=== PATIENT | male | born 1930 | race Caucasian/White ===

== ENCOUNTER 2016-06-12 11:54 | Emergency (ER) | payer OTHER ==
--- NOTE | 2016-06-12 13:31 | ER PHYSICIAN DOCUMENTATION ---
Physician Documentation [facility] Name:Ramírez Mcdaniels Age:85 yrs Sex:Male :1930 Arrival Date:06/12/2016 Time:11:54 Bed6 Private MD:aPco Heredia ED, Scott Disposition: 06/12/16 13:01 Discharged to Home/Self Care. Impression: Hip Contusion. - Condition is Good. - Discharge Instructions: HEMATOMA, HIP CONTUSION, Agents, Anticoagulant - COUMADIN COAGULOPATHY. - Medical Reconciliation form form. - Follow up: Paco Heredai MD; When: 4- 6 days; Reason: Recheck today's complaints, Continuance of care. - Problem is new. - Symptoms are unchanged. HPI: 06/12 12:57 This 85 yrs old Male presents to ER via Private Vehicle with complaints of sc Hip Injury - R. 12:57 The patient or guardian reports an injury, pain. that occurred at home, sustained from wy a fall, There is no obvious deformity, The patient is able to self ambulate. The patient is able to bear their full body weight. There is no radiation of the patient's discomfort. fell 4 days ago. The complaints affect the right hip. Onset: The symptom(s)/episode began/occurred 4 day(s) ago. Associated signs and symptoms: Loss of consciousness: the patient experienced no loss of consciousness. Historical: - Allergies: Amiodarone; Codeine; Morphine; Spironolactone; - Home Meds: 1. Warfarin Oral 2. Metformin Oral 3. Prednisone Oral 4. Synthroid Oral 5. Coreg Oral 6. Furosemide Oral 7. Enalapril Oral 8. hydrocotisone - PMHx: hypoxemia ; COPD; CHF; ATRIAL FIB; - PSHx: cataract removal; PACEMAKER; Cholecysectomy; hip replacement ; - Tetanus: < 10 years. - Ebola Screening: : Patient negative for fever greater than or equal to 101.5 degrees Fahrenheit, and additional compatible Ebola Virus Disease symptoms. Patient denies exposure to infectious person. Patient denies travel to an Ebola-affected area in the 21 days before illness onset. No symptoms or risks identified at this time. . - Immunization history: Flu Vaccine < 1 year. - Social history: Smoking status: Patient states former smoker of tobacco. ROS: 12:58 Constitutional: Negative for fever, chills, and weight loss. sc Eyes: Negative for injury, pain, redness, and discharge. Neck: Negative for injury, pain, and swelling. Cardiovascular: Negative for chest pain, palpitations, and edema. Respiratory: Negative for shortness of breath, cough, wheezing, and pleuritic chest pain. Back: Negative for injury and pain. Skin: Negative for injury, rash, and discoloration. 12:58 Neuro: Negative for headache, weakness, numbness, tingling, and seizure. sc 12:58 MS/extremity: Positive for injury or acute deformity, contusion, pain. Exam: Constitutional: This is a well developed, well nourished patient who is awake, alert, and in no acute distress. Head/Face: Normocephalic, atraumatic. Eyes: Pupils equal round and reactive to light, extra-ocular motions intact. Lids and lashes normal. Conjunctiva and sclera are non-icteric and not injected. Cornea within normal limits. Periorbital areas with no swelling, redness, or edema. Neck: Trachea midline, no thyromegaly or masses palpated, and no cervical lymphadenopathy. Supple, full range of motion without nuchal rigidity, or vertebral point tenderness. No meningismus. 12:59 Skin: Warm, dry with normal turgor. Normal color with no rashes, no lesions, and no sc evidence of cellulitis. 12:59 Musculoskeletal/extremity: Extremities: grossly normal except: noted in the right hip: contusion, ecchymosis, ROM: intact in all extremities, Circulation is intact in all extremities. Sensation intact. Vital Signs: 12:13 BP 128 / 46; Pulse 69; Resp 18; Pulse Ox 93% on R/A; Weight 101.15 kg; Height 70 in. cb (177.80 cm); Pain 10/10; 12:13 Body Mass Index 32.00 (101.15 kg, 177.80 cm) cb MDM: 11:57 Patient medically screened. sc 13:00 Differential diagnosis: hip fracture, intertrochanteric fracture, strain. Data sc reviewed: vital signs, nurses notes, lab test result(s), radiologic studies, and as a result, I will discharge patient. Counseling: I had a detailed discussion with the patient and/or guardian regarding: the historical points, exam findings, and any diagnostic results supporting the discharge/admit diagnosis, lab results, radiology results. Medication response: The patient's symptoms have improved. 06/12 12:36 Order name: INR W/ CAPI DRAW; Complete Time: 13:02 EDMO 06/12 13:02 Interpretation: Abnormal: INR W/ CAPI DRAW 4.3. sc Dispensed Medications: No medications were administered Signatures: Magalis Payan RN RN cb Chew, Scott, MD MD [facility], [facility] sd3
--- NOTE | 2016-06-12 13:31 | ER NURSING DOCUMENTATION ---
Nurse's Notes [facility] Name:Ramírez Mcdaniels Age:85 yrs Sex:Male :1930 Arrival Date:06/12/2016 Time:11:54 Bed6 Private MD:Paco Heredia Diagnosis:Hip Contusion Presentation: 06/12 12:01 Presenting complaint: Patient states: fell on Tuesday whiel moving box landed cb straight out, EMS did respond but didn't transport. Transition of care: Home. 12:01 Method Of Arrival: Private Vehicle cb 12:01 Acuity: KAYLAN 4 cb 12:01 Notified ED Physician of patient's arrival and CC Dr. Beltran notified. cb Triage Assessment: 12:44 General: Appears in no apparent distress, well groomed, Behavior is cooperative. Pain: cb Complains of pain in right hip Pain At worst was 10 out of 10 on a pain scale. Aggravated by getting into bed. EENT: No deficits noted. Neuro: Level of Consciousness is awake, alert, Oriented to person, place, time, event. Cardiovascular: No deficits noted. Respiratory: Airway is patent. GI: No deficits noted. : No deficits noted. Derm: No deficits noted. Musculoskeletal: Reports pain in R hip. 12:44 Injury Description:. cb Historical: - Allergies: Amiodarone; Codeine; Morphine; Spironolactone; - Home Meds: 1. Warfarin Oral 2. Metformin Oral 3. Prednisone Oral 4. Synthroid Oral 5. Coreg Oral 6. Furosemide Oral 7. Enalapril Oral 8. hydrocotisone - PMHx: hypoxemia ; COPD; CHF; ATRIAL FIB; - PSHx: cataract removal; PACEMAKER; Cholecysectomy; hip replacement ; - Tetanus: < 10 years. - Ebola Screening: : Patient negative for fever greater than or equal to 101.5 degrees Fahrenheit, and additional compatible Ebola Virus Disease symptoms. Patient denies exposure to infectious person. Patient denies travel to an Ebola-affected area in the 21 days before illness onset. No symptoms or risks identified at this time. . - Immunization history: Flu Vaccine < 1 year. - Social history: Smoking status: Patient states former smoker of tobacco. Screenin:13 Infectious Disease Risk None. Abuse screen: Denies threats or abuse. Denies injuries cb from another. Nutritional screening: No deficits noted. Vital Signs: 12:13 BP 128 / 46; Pulse 69; Resp 18; Pulse Ox 93% on R/A; Weight 101.15 kg; Height 70 in. cb (177.80 cm); Pain 10/10; 12:13 Body Mass Index 32.00 (101.15 kg, 177.80 cm) cb ED Course: 11:56 Patient arrived in ED. ama 11:56 Paco Heredia MD is Private Physician. ama 11:57 Joseph Beltran MD is Attending Physician. oh 12:01 Magalis Payan RN is Primary Nurse. cb 12:03 Triage completed. cb 12:12 Port Xray Completed. pm1 12:13 Valuables Remains with patient Patient has correct armband on for positive cb identification. Placed in gown. Bed in low position. Call light in reach. Adult w/ patient. Ice pack to injury. 13:00 Paco Heredia MD is Referral Physician. sc Administered Medications: No medications were administered Outcome: 13:01 Discharge ordered by . oh 13:15 Discharged to home via wheelchair, with family. 13:15 Condition: stable 13:15 Discharge Assessment: Patient awake, alert and oriented x 3. No cognitive and/or functional deficits noted. Patient verbalized understanding of disposition instructions. 13:15 Discharge instructions given to patient, family, Instructed on discharge instructions, follow up and referral plans. medication usage, Demonstrated understanding of instructions, medications. 13:30 Patient left the ED. sd3 Signatures: Magalis Payan RN RN Joseph Beltran MD MD oh Adela Joshi pm1 [employer] sd3 Asael Pandya, Reg Reg ama
--- NOTE | 2016-06-15 15:53 | RADIOLOGY REPORT ---
Views of the right hip are compared with prior films dated 12/23/2014. Again noted is the right hip replacement. Components are intact and in appropriate position. No fracture, subluxation or bony destructive change is seen. Scattered heterotopic ossification is increased. IMPRESSION: Stable right hip replacement. No acute displaced injury is identified. Occult pelvic fractures are common in this age group and may require further evaluation and/or followup for detection. [facility]
== END 2016-06-12 13:31 | disposition home or self-care (01) ==
LOC: ER 11:54
DX: S70.01XA Contusion of right hip, initial encounter (principal); W19.XXXA Unspecified fall, initial encounter; Y92.019 Unspecified place in single-family (private) house as the place of occurrence of the external cause; Y93.01 Activity, walking, marching and hiking; J44.9 Chronic obstructive pulmonary disease, unspecified; I48.91 Unspecified atrial fibrillation; Z79.01 Long term (current) use of anticoagulants; Z79.899 Other long term (current) drug therapy; Z95.0 Presence of cardiac pacemaker
CPT/HCPCS: 85610; 99282

== ENCOUNTER 2016-06-17 13:06 | Emergency (ER) | payer OTHER ==
[2016-06-17 14:31] LABS: BASOPHILS 0.2 % (0.0-2.0); EOSINOPHILS 0.4 % (0.0-6.0); HEMATOCRIT 32.1 % (42.0-54.0); HEMOGLOBIN 10.5 g/dL (14.0-18.0); LYMPHOCYTES 11.6 % (20.0-40.0); LYMPHOCYTES# 1.4 X 10^3uL (0.8-3.8); MEAN CELL VOLUME 87.9 fL (80.0-100.0); MEAN CORPUS. HGB CONCENTRATION 32.6 g/dL (32.0-36.0); MEAN CORPUSCULAR HEMOGLOBIN 28.6 pg (29.0-35.0); MEAN PLATELET VOLUME 7.5 fL (7.4-10.4); MONOCYTES 12.9 % (2.0-10.0); MONOCYTES# 1.5 X 10^3uL (0.2-1.0); NEUTROPHILS 74.9 % (54.0-75.0); NEUTROPHILS# 8.9 X 10^3uL (2.6-6.7); PLATELET COUNT 348 X 10^3uL (130-440); RED BLOOD COUNT 3.66 X 10^6uL (4.20-6.10); RED CELL DISTRIBUTION WIDTH 14.9 % (11.5-14.5); WHITE BLOOD COUNT 11.8 X 10^3uL (3.9-10.7)
[2016-06-17 14:40] LABS: BLOOD UREA NITROGEN 21 mg/dL (9-20); CALCIUM 9.2 mg/dL (8.4-10.2); CHLORIDE 102 mmol/L (98-107); CREATININE 0.7 mg/dL (0.7-1.3); GLUCOSE 114 mg/dL (70-100); POTASSIUM 4.3 mmol/L (3.5-5.1); SODIUM 135 mmol/L (137-145)
--- NOTE | 2016-06-17 16:25 | US REPORT ---
INDICATIONS:Rule out DVT COMPARISON:None TECHNIQUE: Duplex left lower stomach venous ultrasound, including color Doppler and pulse Doppler mendez luation with spectral waveform analysis and compression technique, was performed. FINDINGS:The visualized left common femoral, femoral and popliteal veins demonstrate normal flow, aug mentation and compressibility. There is an incidentally noted 6.2 x 1.3 cm Hernandez's cyst within the po pliteal fossa. IMPRESSION: 1. Negative examination for acute DVT 2. Incidental left Hernandez's cyst. Final Electronic Signature: This report was electronically signed by Modesto Smith MD on 06/17/2016 4:2 3 PM. dwells /
--- NOTE | 2016-06-17 17:12 | ER NURSING DOCUMENTATION ---
Nurse's Notes [facility] Name:Ramírez Mcdaniels Age:85 yrs Sex:Male :1930 Arrival Date:06/17/2016 Time:13:06 Bed1 Private MD:Paco Heredia Diagnosis:Bakers Cyst Presentation: 06/17 13:10 Acuity: KAYLAN 3 tg 13:54 Presenting complaint: Patient states: Increased swelling, redness, and pain in left LE. tg Transition of care: patient was not received from another setting of care. 13:54 Method Of Arrival: Private Vehicle tg Triage Assessment: 13:12 General: Appears in no apparent distress, Behavior is cooperative. Pain: Complains of tg pain in left foot Aggravated by increased activity, weight bearing. Neuro: Level of Consciousness is awake, alert. Cardiovascular: Capillary refill < 3 seconds. Cardiovascular: Edema Generalized edema in left leg, right leg appears normal (pt agrees). Respiratory: Respiratory effort is even, unlabored. Derm: Skin is pink, warm & dry. Derm: erythema in left toes and dorsum of foot. Covered wound on bottom of left toes. Historical: - Allergies: Amiodarone; Codeine; Morphine; Spironolactone; - Home Meds: 1. Warfarin Oral 2. Metformin Oral 3. Prednisone Oral 4. Synthroid Oral 5. Coreg Oral 6. Furosemide Oral 7. Enalapril Oral 8. hydrocotisone 9. Magnesium Oxide Oral 10. iron - PMHx: COPD; CHF; ATRIAL FIB; hypoxemia ; edema; spinal stenosis; cellulitis; PSVT; HIGH CHOLESTEROL; THYROID PROBLEM; IBS; - PSHx: HIP SURGERY; pacer; CHOLECYSECTOMY; back; - Tetanus: < 10 years. - Ebola Screening: : Patient negative for fever greater than or equal to 101.5 degrees Fahrenheit, and additional compatible Ebola Virus Disease symptoms. Patient denies exposure to infectious person. Patient denies travel to an Ebola-affected area in the 21 days before illness onset. No symptoms or risks identified at this time. . - Immunization history: Flu Vaccine < 1 year. - Social history: Smoking status: Patient states former smoker of tobacco. Screenin:54 Infectious Disease Risk Unable to Obtain. Abuse screen: Denies threats or abuse. Denies tg injuries from another. Nutritional screening: No deficits noted. Assessment: 15:38 Reassessment: No changes from previously documented assessment. tg Vital Signs: 13:24 BP 126 / 40; Pulse 63; Resp 16; Temp 97.8(O); Pulse Ox 92% on R/A; Weight 101.15 kg tg (R); Height 5 ft. 8 in. (172.72 cm) (R); Pain 3/10; 17:09 BP 142 / 47; Pulse 64; Resp 16; Pulse Ox 91% on R/A; tg 13:24 Body Mass Index 33.91 (101.15 kg, 172.72 cm) tg ED Course: 13:07 Patient arrived in ED. ama 13:08 Paco Heredia MD is Private Physician. ama 13:09 Joseph Beltran MD is Attending Physician. ms 13:10 Triage completed. tg 13:37 Patient moved to [facility]. feliciano 13:47 Varun Barth RN is Primary Nurse. tg 13:54 Valuables Remains with patient. Family accompanied patient. tg 14:07 Patient moved back from [facility]. mk 15:39 Assisted with urinal. tg 16:45 Paco Heredia MD is Referral Physician. ms Administered Medications: No medications were administered Outcome: 16:45 Discharge ordered by . ms 17:09 Discharged to home via wheelchair, with significant other. tg 17:09 Condition: stable 17:09 Discharge Assessment: Patient awake and alert. Pt able to stand with assistance and pivot to wheelchair from bed. 17:09 Instructed on discharge instructions, follow up and referral plans. 17:09 IV D/Chris 17:11 Patient left the ED. tg Signatures: Varun Barth, RN RN Joseph Beltran MD MD ms Arianne Stewart Andrew, Reg Reg ama
--- NOTE | 2016-06-17 17:12 | ER PHYSICIAN DOCUMENTATION ---
Physician Documentation [facility] Name:Ramírez Mcdaniels Age:85 yrs Sex:Male :1930 Arrival Date:06/17/2016 Time:13:06 Bed1 Private MD:Paco Heredia ED, Scott Disposition: 06/17/16 16:45 Discharged to Home/Self Care. Impression: Bakers Cyst. - Condition is Fair. - Discharge Instructions: HERNANDEZ'S CYST. - Medical Reconciliation form form. - Follow up: Paco Heredia MD; When: Tomorrow; Reason: Recheck today's complaints. - Problem is new. - Symptoms are unchanged. HPI: 06/17 16:41 This 85 yrs old Male presents to ER via Private Vehicle with complaints of sc Leg Swelling - R. 16:41 This 85 yrs old Male presents to ER via Private Vehicle with complaints of sc Leg Swelling - L. 16:41 The patient presents with swelling. The complaints affect the lateral aspect of left sc calf and medial aspect of left calf. Context: The problem was sustained at home, resulted from an unknown cause, the patient can fully bear weight, the patient is able to ambulate. Onset: The symptom(s)/episode began/occurred 2 day(s) ago. Associated signs and symptoms: The patient has no apparent associated signs or symptoms. Historical: - Allergies: Amiodarone; Codeine; Morphine; Spironolactone; - Home Meds: 1. Warfarin Oral 2. Metformin Oral 3. Prednisone Oral 4. Synthroid Oral 5. Coreg Oral 6. Furosemide Oral 7. Enalapril Oral 8. hydrocotisone 9. Magnesium Oxide Oral 10. iron - PMHx: COPD; CHF; ATRIAL FIB; hypoxemia ; edema; spinal stenosis; cellulitis; PSVT; HIGH CHOLESTEROL; THYROID PROBLEM; IBS; - PSHx: HIP SURGERY; pacer; CHOLECYSECTOMY; back; - Tetanus: < 10 years. - Ebola Screening: : Patient negative for fever greater than or equal to 101.5 degrees Fahrenheit, and additional compatible Ebola Virus Disease symptoms. Patient denies exposure to infectious person. Patient denies travel to an Ebola-affected area in the 21 days before illness onset. No symptoms or risks identified at this time. . - Immunization history: Flu Vaccine < 1 year. - Social history: Smoking status: Patient states former smoker of tobacco. ROS: 16:41 Constitutional: Negative for fever, chills, and weight loss. sc Eyes: Negative for injury, pain, redness, and discharge. Neck: Negative for injury, pain, and swelling. Cardiovascular: Negative for chest pain, palpitations, and edema. Respiratory: Negative for shortness of breath, cough, wheezing, and pleuritic chest pain. Abdomen/GI: Negative for abdominal pain, nausea, vomiting, diarrhea, and constipation. Back: Negative for injury and pain. Skin: Negative for injury, rash, and discoloration. 16:41 Neuro: Negative for headache, weakness, numbness, tingling, and seizure. sc 16:41 MS/extremity: Positive for erythema, pain, swelling. Exam: Constitutional: This is a well developed, well nourished patient who is awake, alert, and in no acute distress. Head/Face: Normocephalic, atraumatic. Eyes: Pupils equal round and reactive to light, extra-ocular motions intact. Lids and lashes normal. Conjunctiva and sclera are non-icteric and not injected. Cornea within normal limits. Periorbital areas with no swelling, redness, or edema. Cardiovascular: Regular rate and rhythm with a normal S1 and S2. No gallops, murmurs, or rubs. Normal PMI, no JVD. No pulse deficits. Respiratory: Lungs have equal breath sounds bilaterally, clear to auscultation and percussion. No rales, rhonchi or wheezes noted. No increased work of breathing, no retractions or nasal flaring. 16:42 Back: No spinal tenderness. No costovertebral tenderness. Full range of motion. sc 16:42 Musculoskeletal/extremity: Extremities: grossly normal except: erythema, swelling, tenderness, ROM: no acute changes, Circulation is intact in all extremities. Sensation intact. flushing over dorsum of foot, healing ulcers and toes with decreased vascularity being treated by podiatry Vital Signs: 13:24 BP 126 / 40; Pulse 63; Resp 16; Temp 97.8(O); Pulse Ox 92% on R/A; Weight 101.15 kg tg (R); Height 5 ft. 8 in. (172.72 cm) (R); Pain 3/10; 17:09 BP 142 / 47; Pulse 64; Resp 16; Pulse Ox 91% on R/A; tg 13:24 Body Mass Index 33.91 (101.15 kg, 172.72 cm) tg MDM: 13:09 Patient medically screened. nm 16:43 Differential diagnosis: dvt vs cellulitis vs gout vs other. Data reviewed: vital signs, nm nurses notes, lab test result(s), radiologic studies, ultrasound, and as a result, I will discharge patient. Counseling: I had a detailed discussion with the patient and/or guardian regarding: the historical points, exam findings, and any diagnostic results supporting the discharge/admit diagnosis, lab results, radiology results, the need for outpatient follow up, with the patient's primary care provider, Likely Hernandez's Cyst and venous stasis. Nl wbc and lack of warmth or acute tenderness makes cellulitis seem less likely today. Recheck tomorrow with pcp Dr. Heredia.. 06/17 14:42 Order name: CBC AUTO DIF, MDIF/RMOR IF IND; Complete Time: 15:40 EDMS 06/17 14:48 Interpretation: Abnormal: WHITE BLOOD COUNT 11.8; HEMATOCRIT 32.1. nm 06/17 14:42 Order name: PROTIME/INR; Complete Time: 15:40 EDMS 06/17 14:48 Interpretation: Abnormal: INR 3.0; anticoagulated. nm 06/17 15:07 Order name: BASIC METABOLIC PANEL; Complete Time: 15:40 EDMS 06/17 15:40 Interpretation: Normal. nm 06/17 16:28 Order name: US EXT LOWER LEFT [id number] EDMS Dispensed Medications: No medications were administered Signatures: Varun Barth, RUI RN tg Joseph Beltran MD MD nm
== END 2016-06-17 17:12 | disposition home or self-care (01) ==
LOC: ER 13:06
DX: M71.22 Synovial cyst of popliteal space [Baker], left knee (principal); M79.89 Other specified soft tissue disorders; M79.605 Pain in left leg; L97.529 Non-pressure chronic ulcer of other part of left foot with unspecified severity; R78.81 Bacteremia; B95.61 Methicillin susceptible Staphylococcus aureus infection as the cause of diseases classified elsewhere; I48.91 Unspecified atrial fibrillation; Z79.01 Long term (current) use of anticoagulants; J44.9 Chronic obstructive pulmonary disease, unspecified; Z79.899 Other long term (current) drug therapy
CPT/HCPCS: 80048; 85025; 85610; 87040; 87077; 87186; 99284

== ENCOUNTER 2016-06-23 16:54 | Inpatient (IN) | payer OTHER ==
[2016-06-23 17:40] LABS: BLOOD UREA NITROGEN 31 mg/dL (9-20); CALCIUM 9.3 mg/dL (8.4-10.2); CHLORIDE 99 mmol/L (98-107); CREATININE 0.9 mg/dL (0.7-1.3); GLUCOSE 155 mg/dL (70-100); MAGNESIUM 1.7 mg/dL (1.6-2.3); POTASSIUM 4.5 mmol/L (3.5-5.1); SODIUM 135 mmol/L (137-145)
[2016-06-23 17:51] LABS: TROPONIN I 0.022 ng/mL (0.00-0.034)
[2016-06-23 17:56] LABS: INR 1.9
[2016-06-23 18:01] LABS: BAND% (Manual) 2 % (0.0-1.0); EOSINOPHIL % (Manual) 1 % (0.0-6.0); LYMPHOCYTE % (Manual) 21 % (20.0-40.0); MONOCYTE % (Manual) 6 % (2.0-10.0); NEUTROPHIL % (Manual) 54 % (54.0-75.0)
[2016-06-23 18:02] LABS: PLATELET ESTIMATE ADEQUATE
[2016-06-23 18:06] LABS: OVALOCYTES PRESENT
[2016-06-23 18:07] LABS: HEMATOCRIT 36.5 % (42.0-54.0); HEMOGLOBIN 11.6 g/dL (14.0-18.0); MEAN CELL VOLUME 88.2 fL (80.0-100.0); MEAN CORPUS. HGB CONCENTRATION 31.9 g/dL (32.0-36.0); MEAN CORPUSCULAR HEMOGLOBIN 28.1 pg (29.0-35.0); MEAN PLATELET VOLUME 8.5 fL (7.4-10.4); PLATELET COUNT 388 X 10^3uL (130-440); RED BLOOD COUNT 4.14 X 10^6uL (4.20-6.10); RED CELL DISTRIBUTION WIDTH 15.3 % (11.5-14.5); WHITE BLOOD COUNT 19.3 X 10^3uL (3.9-10.7)
[2016-06-23 18:08] LABS: MYELOCYTE % (Manual) 1 % (0); PROMYELOCYTE % (Manual) 2 % (0)
[2016-06-23] MEDS ORDERED: FUROSEMIDE 20 MG/2 ML VIAL ONE ×2 (18:34→18:50)
[2016-06-23] MEDS ORDERED: NORMAL SALINE ADDVANTAGE 100 ML IV ONE (18:34)
[2016-06-23] MEDS ORDERED: CEFTRIAXONE SODIUM 1,000 MG/10 ML VIAL ONE (18:34)
[2016-06-23] MEDS ORDERED: HOME MEDICATION LIST NEEDED 1 EA EACH MISC ONE (19:20)
--- NOTE | 2016-06-23 20:48 | ER PHYSICIAN DOCUMENTATION ---
Physician Documentation [facility] Name:Ramírez Mcdaniels Age:85 yrs Sex:Male :1930 Arrival Date:06/23/2016 Time:16:54 Bed1 Private MD:Paco Heredia ED, John Disposition: 06/23/16 18:25 Admit ordered for eMrlin Guerra. Preliminary diagnosis are White Blood Cell Count- Elevated, Weakness, Difficulty Walking. - Bed requested for Medical/Surgical. - Condition is Fair. - Problem is new. - Symptoms have improved. 23 HR OBS Yes HPI: 06/23 18:20 This 85 yrs old Male presents to ER via EMS with complaints of Weakness. marjorie 18:20 The patient presents to the emergency department with weakness of the entire body, jm generalized weakness. Onset: The symptom(s)/episode began/occurred today. Context: occurred while the patient was going up stairs. . Associated signs and symptoms: The patient has no apparent associated signs or symptoms. Severity of symptoms: in the emergency department the symptoms are unchanged. Current symptoms: Currently, the patient is not experiencing any symptoms. The patient has not experienced similar symptoms in the past. The patient has not recently seen a physician. Pt was walking up the stairs and couldn't quite make it b/c of weakness, so he called 911. . Historical: - Allergies: Amiodarone; Codeine; Morphine; Spironolactone; - Home Meds: 1. Warfarin Oral 2. Metformin Oral 3. Prednisone Oral 4. Synthroid Oral 5. Coreg Oral 6. Enalapril Oral 7. hydrocotisone 8. Magnesium Oxide Oral 9. Lasix Oral - PMHx: COPD; CHF; ATRIAL FIB; hypoxemia ; edema; spinal stenosis; CELLULITIS; PSVT; HIGH CHOLESTEROL; THYROID PROBLEM; IBS; Pacemaker; Bakers Cyst (June 17, 2016); - PSHx: HIP SURGERY; pacer; CHOLECYSECTOMY; - Tetanus: unknown. - Ebola Screening: : No symptoms or risks identified at this time. . - Immunization history: Flu Vaccine < 1 year. - Social history: Smoking status: unknown if patient ever smoked tobacco. ROS: 18:22 Constitutional: Negative for fatigue, fever. marjorie 18:22 ENT: Negative for sinus congestion, sinus pain, sore throat. 18:22 Neck: Negative for tenderness. 18:22 Cardiovascular: Negative for chest pain. 18:22 Respiratory: Negative for cough, shortness of breath. 18:22 Abdomen/GI: Negative for abdominal pain, nausea, vomiting. 18:22 MS/extremity: Positive for swelling. 18:22 Skin: Positive for swelling. 18:22 Neuro: Positive for weakness, Negative for dizziness, numbness. 18:22 All other systems are negative. Exam: 18:22 Constitutional: The patient appears alert, awake, comfortable. jm 18:22 Eyes: Periorbital structures: appear normal, Pupils: equal, round, and reactive to light and accomodation. 18:22 Neck: C-spine: appears grossly normal, ROM/movement: is normal. 18:22 Cardiovascular: Rate: normal, Rhythm: regular. 18:22 Respiratory: the patient does not display signs of respiratory distress, Respirations: normal. 18:22 Abdomen/GI: Bowel sounds: normal, Palpation: abdomen is soft and non-tender. 18:22 Musculoskeletal/extremity: DVT Exam: No signs of deep vein thrombosis. Calves: are non-tender, but +1 edema noted. 18:22 Neuro: Mentation: is normal, Memory: is normal. 18:22 Neuro: Motor: is normal. 18:22 Psych: Behavior/mood is pleasant, cooperative, Affect is calm. Vital Signs: 17:12 BP 122 / 51; Pulse 60; Resp 18; Temp 97.4; Pulse Ox 92% on R/A; Weight 101.15 kg; ma Height 5 ft. 11 in. (180.34 cm); Pain 0/10; 17:55 BP 124 / 50; Pulse 60; Resp 14; Pulse Ox 92% on R/A; ma 18:58 BP 131 / 46; Pulse 62; Resp 23; Pulse Ox 94% on R/A; Pain 0/10; ma 19:01 BP 131 / 46; Pulse 60; Resp 16; Pulse Ox 90% ; ma 19:30 BP 122 / 50; Pulse 59; Resp 17; Pulse Ox 91% on R/A; ma 19:30 BP 121 / 51; Pulse 60; Resp 21; Pulse Ox 95% on R/A; ma 20:00 BP 118 / 52; Pulse 62; Resp 13; Pulse Ox 95% ; ma 20:30 BP 127 / 52; Pulse 60; Resp 15; Pulse Ox 94% ; ma 17:12 Body Mass Index 31.10 (101.15 kg, 180.34 cm) nv MDM: 16:59 Patient medically screened. 18:23 Neurological re-evaluation: normal neurological exam including cranial nerves, jm orientation, mentation, motor and sensory exam, cerebellar testing, GCS normal, and normal gait. Data reviewed: vital signs, nurses notes, old medical records, lab test result(s), EKG, radiologic studies, and as a result, I will admit patient. Test interpretation: by ED physician or midlevel provider: plain radiologic studies, ECG. Counseling: I had a detailed discussion with the patient and/or guardian regarding: the historical points, exam findings, and any diagnostic results supporting the discharge/admit diagnosis, lab results, radiology results, the need for further work-up and treatment in the hospital. ECG:. Physician consultation: Merlin Guerra MD regarding admission, and will see patient in ED, immediately. ED course: Pt here for weakness. I do not have a great idea of why except for possible CHF exacerbation vs infection,. WBC count is elevated which may be due to infection vs myeloproliferative disorder. Dr. Guerra will see pt and wants bld clx and abx. . 06/23 17:46 Order name: BASIC METABOLIC PANEL; Complete Time: 18:16 [facility] 06/23 17:46 Order name: MAGNESIUM; Complete Time: 18:16 [facility] 06/23 17:53 Order name: TROPONIN I; Complete Time: 18:16 [facility] 06/23 17:58 Order name: PROTIME/INR; Complete Time: 18:16 [facility] 06/23 18:06 Order name: BNP,NT-PRO; Complete Time: 18:16 [facility] 06/23 18:09 Order name: CBC W/ MANUAL DIFFERENTIAL; Complete Time: 18:16 [facility] 06/23 17:13 Order name: 12-lead EKG; Complete Time: 18:31 06/23 17:13 Order name: Iv Saline Lock; Complete Time: 18:31 06/23 17:13 Order name: Place Patient On Monitor; Complete Time: 18:31 06/23 17:13 Order name: Pulse Ox Continuous; Complete Time: 18:31 EC:23 Rhythm is regular. QRS Crawford is Normal. T waves are Normal. No ST changes noted. Dispensed Medications: 18:50 Drug: Lasix 20 mg; Route: IVP; Rate: per protocol; Infused Over: 3 mins; Site: left nv hand; 19:25 Follow up: Response: No adverse reaction nv 19:15 Drug: Clindamycin 600 mg; Route: IVPB; Rate: per protocol; Site: left hand; Delivery: ma Pump; 19:45 Follow up: IV Status: Completed infusion; IV Intake: 50ml nv 20:41 Follow up: Response: No adverse reaction nv 19:24 CANCELLED (Physician Discretion): Rocephin 1 grams IVPB once ma Signatures: Magalis Toribio, RUI RN David Lyles MD MD jm
--- NOTE | 2016-06-23 20:48 | ER NURSING DOCUMENTATION ---
Nurse's Notes [facility] Name:Ramírez Mcdaniels Age:85 yrs Sex:Male :1930 Arrival Date:06/23/2016 Time:16:54 Bed1 Private MD:Paco Heredia Diagnosis:White Blood Cell Count- Elevated;Weakness;Difficulty Walking Presentation: 06/23 16:57 Acuity: KAYLAN 2 ma 16:58 Presenting complaint: Son states: EMS called for patient assist to get up stairs Pt ma states he had onset of weakness when trying to climb stairs Pt laid down on stairs and waited for help Denies fall or injury Per EMS they are frequently called to his home for lift assist. Transition of care: Home. 16:58 Method Of Arrival: EMS: 410 ma Triage Assessment: 17:16 General: Appears in no apparent distress, well groomed, Behavior is cooperative. Neuro: ma Reports weakness. Historical: - Allergies: Amiodarone; Codeine; Morphine; Spironolactone; - Home Meds: 1. Warfarin Oral 2. Metformin Oral 3. Prednisone Oral 4. Synthroid Oral 5. Coreg Oral 6. Enalapril Oral 7. hydrocotisone 8. Magnesium Oxide Oral 9. Lasix Oral - PMHx: COPD; CHF; ATRIAL FIB; hypoxemia ; edema; spinal stenosis; CELLULITIS; PSVT; HIGH CHOLESTEROL; THYROID PROBLEM; IBS; Pacemaker; Bakers Cyst (June 17, 2016); - PSHx: HIP SURGERY; pacer; CHOLECYSECTOMY; - Tetanus: unknown. - Ebola Screening: : No symptoms or risks identified at this time. . - Immunization history: Flu Vaccine < 1 year. - Social history: Smoking status: unknown if patient ever smoked tobacco. Screenin:14 Infectious Disease Risk None. Abuse screen: Denies threats or abuse. Nutritional ma screening: No deficits noted. Assessment: 17:16 Pain: Denies pain. Neuro: Level of Consciousness is awake, alert, Oriented to person, ma place, time, event. Cardiovascular: Rhythm is ventricular pacer. Vital Signs: 17:12 BP 122 / 51; Pulse 60; Resp 18; Temp 97.4; Pulse Ox 92% on R/A; Weight 101.15 kg; ma Height 5 ft. 11 in. (180.34 cm); Pain 0/10; 17:55 BP 124 / 50; Pulse 60; Resp 14; Pulse Ox 92% on R/A; ma 18:58 BP 131 / 46; Pulse 62; Resp 23; Pulse Ox 94% on R/A; Pain 0/10; ma 19:01 BP 131 / 46; Pulse 60; Resp 16; Pulse Ox 90% ; ma 19:30 BP 122 / 50; Pulse 59; Resp 17; Pulse Ox 91% on R/A; ma 19:30 BP 121 / 51; Pulse 60; Resp 21; Pulse Ox 95% on R/A; ma 20:00 BP 118 / 52; Pulse 62; Resp 13; Pulse Ox 95% ; ma 20:30 BP 127 / 52; Pulse 60; Resp 15; Pulse Ox 94% ; ma 17:12 Body Mass Index 31.10 (101.15 kg, 180.34 cm) ca ED Course: 16:56 Patient arrived in ED. ds 16:56 Paco Heredia MD is Private Physician. ds 16:56 Magalis Toribio, RUI is Primary Nurse. ca 16:57 Triage completed. ca 16:59 office correspondent on. Pulse ox on. NIBP on. ma 17:09 EKG done. (by ED staff). Reviewed by David Escobar MD. ca 17:12 David Escobar MD is Attending Physician. 17:14 Valuables Given to family. Patient has correct armband on for positive identification. ma Placed in gown. Bed in low position. Call light in reach. Side rails up X 1. Adult w/ patient. 18:25 Merlin Guerra MD is Admitting Physician. marjorie Administered Medications: 18:50 Drug: Lasix 20 mg; Route: IVP; Rate: per protocol; Infused Over: 3 mins; Site: left ma hand; 19:25 Follow up: Response: No adverse reaction ma 19:15 Drug: Clindamycin 600 mg; Route: IVPB; Rate: per protocol; Site: left hand; Delivery: ma Pump; 19:45 Follow up: IV Status: Completed infusion; IV Intake: 50ml ma 20:41 Follow up: Response: No adverse reaction ma 19:24 CANCELLED (Physician Discretion): Rocephin 1 grams IVPB once ma Intake: 19:45 IV: 50ml; Total: 50ml. ma Output: 20:30 Urine: 550ml (Voided); Total: 550ml. ma Outcome: 18:25 Decision to Admit by Provider. marjorie 20:43 Admitted to Med/surg danica 20:43 Condition: stable 20:43 Report given to Augustus FABIAN 20:43 Instructed on need to admit 20:47 Patient left the ED. danica Signatures: Magalis Toribio RN RN ma Srot, Cassidy, Reg Reg David Chaidez MD MD jm
[2016-06-23] MEDS ORDERED: MAGNESIUM OXIDE 250 MG PO SCH (21:00)
[2016-06-23] MEDS ORDERED: ACETAMINOPHEN 500 MG TABLET PO PRN (21:52)
[2016-06-23] MEDS: SODIUM CHLORIDE NASAL SPRAY 44 SPRAY/44 ML BTL NASAL SCH (22:37)
[2016-06-23] MEDS: CARVEDILOL 3.125 MG TABLET PO SCH (22:37)
[2016-06-23] MEDS ORDERED: VANCOMYCIN HCL IV SCH (23:00)
[2016-06-23] MEDS ORDERED: NORMAL SALINE IV SCH (23:00)
[2016-06-24] MEDS ORDERED: VANCOMYCIN HCL 1,000 MG/20 ML VIAL ONE (01:10)
[2016-06-24] MEDS ORDERED: VANCOMYCIN 500 MG/10 ML ONE (01:11)
[2016-06-24] MEDS ORDERED: NORMAL SALINE 250 ML IV ONE (01:12)
[2016-06-24 05:46] LABS: EOSINOPHILS 1.4 % (0.0-6.0); EOSINOPHILS# 0.2 X 10^3uL (0.0-0.4); HEMATOCRIT 32.5 % (42.0-54.0); HEMOGLOBIN 10.5 g/dL (14.0-18.0); LYMPHOCYTES 12.3 % (20.0-40.0); LYMPHOCYTES# 1.4 X 10^3uL (0.8-3.8); MEAN CELL VOLUME 87.8 fL (80.0-100.0); MEAN CORPUS. HGB CONCENTRATION 32.3 g/dL (32.0-36.0); MEAN CORPUSCULAR HEMOGLOBIN 28.4 pg (29.0-35.0); MEAN PLATELET VOLUME 7.4 fL (7.4-10.4); MONOCYTES 5.5 % (2.0-10.0); MONOCYTES# 0.6 X 10^3uL (0.2-1.0); NEUTROPHILS 80.8 % (54.0-75.0); NEUTROPHILS# 9.6 X 10^3uL (2.6-6.7); PLATELET COUNT 291 X 10^3uL (130-440); RED CELL DISTRIBUTION WIDTH 15.4 % (11.5-14.5); WHITE BLOOD COUNT 11.8 X 10^3uL (3.9-10.7)
[2016-06-24 05:53] LABS: BLOOD UREA NITROGEN 30 mg/dL (9-20); CALCIUM 8.7 mg/dL (8.4-10.2); CHLORIDE 100 mmol/L (98-107); CREATININE 0.8 mg/dL (0.7-1.3); GLUCOSE 81 mg/dL (70-100); POTASSIUM 3.5 mmol/L (3.5-5.1); SODIUM 136 mmol/L (137-145)
[2016-06-24] MEDS: LEVOTHYROXINE 88 MCG TABLET PO SCH (06:13)
[2016-06-24] MEDS: PANTOPRAZOLE 40 MG TABLET PO SCH (06:13)
--- NOTE | 2016-06-24 06:26 | HISTORY & PHYSICAL ---
DATE OF ADMISSION: 06/23/16 ATTENDING PHYSICIAN: Merlin Guerra MD PRIMARY CARE PHYSICIAN: Paco Heredia MD HISTORY OF PRESENT ILLNESS: This 85-year-old gentleman came by ambulance to the Emergency Department this evening after being unable to walk up the stairs at home because of generalized weakness. He was able to walk up the stairs this morning. His only recent acute illness has been a suspected left foot cellulitis , evaluated initially on 06/17/16 at [facility] ED. He was started on Cephalexin, which he has continued. He had good improvement in the left foot erythema and partial improvement in his swelling, so has continued on the Cephalexin. However, blood cultures from 06/17/16 grew Staphylcoccus aureus in both bottles but with different sensitivities. See lab section below. This week he also had a venous Duplex scan which evidently showed a Bakers cyst but no clot. He is fully anticoagulated for atrial fibrillation chronically and his INR today was 1.9 and was 2.2 two days ago. He had prednisone from 06/17 - 06/21. He has not had any fever, chills, cough, sore throat, nasal congestion or urinary symptoms. PAST MEDICAL HISTORY 1. Methicillin-resistant staphylococcus aureus in one of his feet 3-4 years ago that required extensive IV antibiotics. He is uncertain which foot or antibiotic. 2. 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 3. Chronic bilateral foot callouses. One of these on the left foot was uncovered in May by Dr. Pennington, with some drainage underneath according to the patient and his . 4. Atrial fibrillation. 5. Cardiomyopathy. 6. Pacemaker. 7. Chronic systolic congestive heart failure. 8. Hypertension. 9. Emphysema. 10. Gastroesophageal reflux disease. 11. Hypothyroidism. 12. Osteopenia. 13. Sick sinus syndrome. 14. 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 15. 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 PAST SURGICAL HISTORY 1. Dual chamber pacemaker 2009. 2. Cholecystectomy 2009. 3. Cataracts 2012. 4. Carpal tunnel release 2015. 5. Hip replacement, right side, 1992. 6. Lumbar laminectomies x2. 7. Lumbar fusion. 8. Right hip arthroplasty x4. MEDICATIONS Cephalexin 500 mg t.i.d. Vitamin D 2000 units daily. Vitamin B complex one daily. Fiber one daily. Artificial tears 0.5% 1 drop in each eye PRN. Omeprazole 20 mg daily. Ayre saline spray, 1 spray in each nostril b.i.d. Warfarin with current dosing of 5 mg every other day according to the patient. Metformin 500 mg extended release daily. Synthroid 88 mcg daily. Coreg 6.25 mg b.i.d. Furosemide 40 mg twice daily. Enalapril 20 mg daily. Tylenol 500 mg t.i.d. PRN. Magnesium oxide 500 mg daily. Iron 325 mg daily. ALLERGIES: Morphine causes itching and hallucinations. Spironolactone caused renal insufficiency and hyperkalemia. Amiodarone caused peripheral neuropathy. Codeine causes pruritus and hallucinations. PHYSICAL EXAMINATION VITAL SIGNS: In the Emergency Department included a temperature 97.4, pulse 62, blood pressure 131/46 and respiratory rate 23 with an O2 saturation of 94% on room air. GENERAL: He was alert and oriented x3 and mildly hard of hearing. No acute distress. HEENT: Oral mucosa was moist. Pharynx without erythema. Sinuses nontender. NECK: Without adenopathy. LUNGS: Had some bibasilar rales, but were otherwise clear. HEART: Irregularly regular rhythm and no murmur. ABDOMEN: Soft, nontender. EXTREMITIES: Left foot and ankle had 1+ edema. The dorsal foot with some moderate erythema and warmth and no tenderness. He had 2 callouses on the sole of the foot at the metatarsal heads. The most lateral one appeared to be the deepest but was without any drainage. NEURO: Nonfocal. LABORATORY DATA: Patient's blood cultures from 06/17/16 both grew out staph aureus. One of them showed resistance to Clindamycin as where the other one did not. Both of them were sensitive to Ciprofloxacin, Levofloxacin, Bactrim and Vancomycin and Gentamycin. Both were resistant to Erythromycin. His white count was 19,300 with 54% neutrophils, 2% bands, 12% atypical lymphs and 21% lymphs. The hemoglobin was 11.6, hematocrit 36.5 and platelets were 388,000. Sodium was 135, potassium 4.5, chloride 99, CO2 23, glucose 155 (random), BUN 31, creatinine 0.9, magnesium 1.7. Troponin 0.022 with normal being less than 0.034. His INR was 1.9. Urinalysis was dip negative. Two new blood cultures are pending. IMAGING: X-ray of the left foot shows no obvious osteomyelitis. IMPRESSION 1. Acute weakness likely related to left foot cellulitis with staphylococcus aureus. Blood cultures were positive on 06/17/16. 2. Congestive heart failure with NT-pro-BNP up to 5,000 compared to 2600 last year in September. 3. Atrial fibrillation with appropriate anticoagulation. 4. Chronic obstructive pulmonary disease with chronic hypoxia and some residual scarring from previous Amiodarone. 5. History of hyperglycemia without diabetes. 6. Hypothyroidism. 7. Gastroesophageal reflux disease. PLAN: Patient initially got Clindamycin in the Emergency Department prior to us becoming aware of her previous blood cultures. I plan to give him Vancomycin IV as dosed by Pharmacy. I will continue him on his other usual medications. We will elevate his foot. Dr. Faith will resume care in the morning, covering for Dr. Heredia. MOMO
--- NOTE | 2016-06-24 07:05 | RADIOLOGY REPORT ---
Three views of the left foot demonstrate no displaced fracture, subluxation or bony destructive change. The visualized joints appear unremarkable. Posterior calcaneal spur is seen. Soft tissue vascular calcifications are noted. IMPRESSION: Chronic changes as described. No evidence of osteomyelitis is identified. If clinically indicated, further evaluation with MRI scanning may be of benefit considering its increased accuracy. MTDD
--- NOTE | 2016-06-24 08:13 | PROGRESS NOTE: IM APSO ---
Assessment and Plan - Date of Encounter Date of Encounter: 06/24/16 (1) Bacteremia due to Gram-positive bacteria Status: Acute Assessment and plan: Patient is receiving Vancomycin. The staph has two different types of sensitivities from each bottle, which is confusing. He has responded remarkably well to the IV antibiotic. I suspect part of his elevated WBC is the result of steroid use recently for presumptive gout. Repeat blood cultures were obtained, but the patient was taking Keflex at home. Addendum: I was called by the lab later in the day with report that only ONE bottle cultured positive, out of two. The staph is insensitive to Clindamycin. Current Visit: Yes (2) CHF (congestive heart failure) Status: Acute Assessment and plan: Patient diuresed well after IV lasix. BNP not ordered for this morning, so will add that. Patient had a normal troponin in the ER, and is not having chest pain. However, since he has bacteremia, I have some concern for the potential of valvular infection. He has mild MR per last echo. He also has a pacemaker in place. The pocket is not inflamed or tender. He also has had the sudden onset of weakness, which brought him to the ER, as he was stuck on his stairs. Will have PT evaluation today. Addendum: BNP was higher at over 7,000. I returned to examine the patient again, and his lungs were clear, his mild peripheral edema is unchanged, he denies any increase in shortness of breath, so I did not add more diuretic. Current Visit: Yes (3) Cellulitis and abscess of foot Status: Acute Assessment and plan: Patient reports decreased pain and swelling today. I suspect that there is gouty involvement, as well as the infection. He has calluses on the sole of the left foot, one of which was unroofed by Podiatry about two weeks ago, which may be the source of the bacteremia. Patient has a neuropathy due to amiodarone. His uric acid level was decreased over previous, and a CRP is in the 26 range. Continue Vancomycin for now. Current Visit: Yes - Time Spent With Patient Total time spent with greater than 50% in coordination of care (as documented) at patient's floor/unit and/or counseling patient: 16-24 minutes IM: PN Subjective Interval history: Doing a lot better this morning, with less weakness and pain. He has not been out of bed, however, and is using the urinal. His white blood cell count is improved. General: no fatigue, no fever, no chills HEENT: no visual changes, no headache Cardiovascular: no chest pain, no chest pressure, no dizziness Respiratory: no SOB Gastrointestinal: no abdominal pain, no nausea Musculoskeletal: pain, swelling Neurological: no headache IM: PN Objective Exam - I&O/Vital Signs I&O: Intake & Output 06/23/16 06/24/16 06/24/16 21:59 05:59 13:59 Intake Total 740 Output Total 550 Balance 190 Weight 100.5 kg Intake: IV 500 Left Hand 500 Oral 240 Output: Urine 550 Other: Voiding Method Incontinent # Voids 1 # Bowel Movements 0 Vital Signs: Last Vital Signs Temp 36.4 C 06/24/16 06:32 Pulse 61 06/24/16 06:32 Resp 18 06/24/16 06:32 BP 118/55 06/24/16 06:32 Pulse Ox 96 06/24/16 06:32 Oxygen Flow Rate 1 Oxygen Delivery Method Nasal Cannula - Constitutional General appearance: Present: obese - Head Head exam: Present: normal inspection - Eye Eye exam: Present: EOMI. Absent: conjunctival injection Pupils: Present: PERRL - ENT ENT exam: Present: mucous membranes moist - Neck Neck exam: Present: full ROM - Respiratory Respiratory exam: Present: rales (bibasilar) - Cardiovascular Cardiovascular exam: Present: irregular rhythm, systolic murmur (2/6) - GI/Abdominal GI/Abdominal exam: Present: normal bowel sounds, soft. Absent: tenderness - Extremities Exam Extremities exam: Present: joint swelling (left ankle), edema, tenderness - Neurological Exam Neurological exam: Present: CN II-XII intact, oriented X3 - Skin Skin exam: Present: warm (around left ankle) - Lab Labs: Laboratory Last Values WBC 11.8 X 10^3uL (3.9-10.7) H 06/24/16 05:00 RBC 3.70 X 10^6uL (4.20-6.10) L 06/24/16 05:00 Hgb 10.5 g/dL (14.0-18.0) L 06/24/16 05:00 Hct 32.5 % (42.0-54.0) L 06/24/16 05:00 MCV 87.8 fL (80.0-100.0) 06/24/16 05:00 MCH 28.4 pg (29.0-35.0) L 06/24/16 05:00 MCHC 32.3 g/dL (32.0-36.0) 06/24/16 05:00 RDW 15.4 % (11.5-14.5) H 06/24/16 05:00 Plt Count 291 X 10^3uL (130-440) 06/24/16 05:00 MPV 7.4 fL (7.4-10.4) 06/24/16 05:00 Total Counted 100 06/23/16 16:33 Neutrophils % 80.8 % (54.0-75.0) H 06/24/16 05:00 Neutrophils % (Manual) 54 % (54.0-75.0) 06/23/16 16:33 Band Neuts % (Manual) 2 % (0.0-1.0) H 06/23/16 16:33 Lymphocytes % 12.3 % (20.0-40.0) L 06/24/16 05:00 Lymphocytes % (Manual) 21 % (20.0-40.0) 06/23/16 16:33 Atypical Lymphs % (Man) 12 % 06/23/16 16:33 Monocytes % (Manual) 6 % (2.0-10.0) 06/23/16 16:33 Eosinophils % 1.4 % (0.0-6.0) 06/24/16 05:00 Eosinophils % (Manual) 1 % (0.0-6.0) 06/23/16 16:33 Basophils % 0.0 % (0.0-2.0) 06/24/16 05:00 Metamyelocytes % (Man) 1 % (0) H 06/23/16 16:33 Myelocytes % (Man) 1 % (0) H 06/23/16 16:33 Promyelocytes % (Man) 2 % (0) H 06/23/16 16:33 Neutrophils # 9.6 X 10^3uL (2.6-6.7) H 06/24/16 05:00 Lymphocytes # 1.4 X 10^3uL (0.8-3.8) 06/24/16 05:00 Monocytes 5.5 % (2.0-10.0) 06/24/16 05:00 Monocytes # 0.6 X 10^3uL (0.2-1.0) 06/24/16 05:00 Eosinophils # 0.2 X 10^3uL (0.0-0.4) 06/24/16 05:00 Basophils # 0.0 X 10^3uL (0.0-0.1) 06/24/16 05:00 Platelet Estimate Adequate 06/23/16 16:33 Polychromasia 10-19% of cells 06/23/16 16:33 Hypochromic-Microcytic 10-19% of cells 06/23/16 16:33 Microcytosis 10-19% of cells 06/23/16 16:33 Ovalocytes Present 06/23/16 16:33 PT 24.8 sec (13.0-16.6) H 06/23/16 16:33 INR 1.9 D 06/23/16 16:33 Sodium 136 mmol/L (137-145) L 06/24/16 05:00 Potassium 3.5 mmol/L (3.5-5.1) D 06/24/16 05:00 Chloride 100 mmol/L (98-107) 06/24/16 05:00 Carbon Dioxide 30 mmol/L (22-30) 06/24/16 05:00 BUN 30 mg/dL (9-20) H 06/24/16 05:00 Creatinine 0.8 mg/dL (0.7-1.3) 06/24/16 05:00 GFR Calculation Not Reportable 06/24/16 05:00 Glucose 81 mg/dL (70-100) 06/24/16 05:00 Calcium 8.7 mg/dL (8.4-10.2) 06/24/16 05:00 Magnesium 1.7 mg/dL (1.6-2.3) 06/23/16 16:33 Troponin I 0.022 ng/mL (0.00-0.034) 06/23/16 16:33 NT-Pro-B Natriuret Pep 4970 pg/mL (<450) H 06/23/16 16:33 Quality Questions - VTE Prophylaxis Assessment VTE Present on Admission?: No Patient at risk for venous thromboembolism?: Yes VTE Risk Level: High Risk VTE Medical Contraindication: N/A-VTE Prophylaxis ordered VTE Medical Contraindication: N/A- VTE prophylaxsis ord (2) CHF (congestive heart failure) Qualifiers: Congestive heart failure chronicity: acute on chronic
[2016-06-24 08:57] LABS: C-REACTIVE PROTEIN 25.7 mg/L (<10.0)
[2016-06-24] MEDS: CARVEDILOL 3.125 MG TABLET PO SCH ×2 (09:37→20:41)
[2016-06-24] MEDS: metFORMIN ER 500 MG TABLET PO SCH (09:38)
[2016-06-24] MEDS: FERROUS SULFATE 325 MG TABLET PO SCH (09:38)
[2016-06-24] MEDS: FUROSEMIDE 40 MG TABLET PO SCH ×2 (09:39→20:42)
[2016-06-24] MEDS: MAGNESIUM OXIDE 400 MG TABLET PO SCH (09:39)
[2016-06-24] MEDS: SODIUM CHLORIDE NASAL SPRAY 44 SPRAY/44 ML BTL NASAL SCH ×3 (09:39→20:45)
[2016-06-24 09:41] LABS: URIC ACID 7.8 mg/dL (3.5-8.5)
[2016-06-24] MEDS: ENALAPRIL MALEATE 5 MG TABLET PO SCH (09:41)
[2016-06-24] MEDS: CHOLECALCIFEROL 1,000 UNIT CAPSULE PO SCH (09:42)
[2016-06-24] MEDS: NORMAL SALINE IV SCH ×2 (11:32→22:49)
[2016-06-24] MEDS: VANCOMYCIN HCL IV SCH ×2 (11:32→22:49)
[2016-06-24] MEDS ORDERED: WARFARIN SODIUM 2 MG TABLET PO SCH (16:00)
[2016-06-24] MEDS ORDERED: POLYVINYL ALCOHOL 1.4% OPHTH 75 DROP/15 ML BTL OPHTHALMIC PRN (19:45)
[2016-06-25 03:04] VITALS: O2SAT 95
[2016-06-25] MEDS: LEVOTHYROXINE 88 MCG TABLET PO SCH (06:25)
[2016-06-25] MEDS: PANTOPRAZOLE 40 MG TABLET PO SCH (06:25)
[2016-06-25 06:39] VITALS: TEMP 97.8
[2016-06-25 07:05] LABS: BLOOD UREA NITROGEN 20 mg/dL (9-20); CALCIUM 8.6 mg/dL (8.4-10.2); CHLORIDE 98 mmol/L (98-107); CREATININE 0.7 mg/dL (0.7-1.3); GLUCOSE 86 mg/dL (70-100); POTASSIUM 3.8 mmol/L (3.5-5.1); SODIUM 136 mmol/L (137-145)
[2016-06-25 07:10] LABS: BASOPHILS 0.1 % (0.0-2.0); EOSINOPHILS# 0.2 X 10^3uL (0.0-0.4); LYMPHOCYTES 12.6 % (20.0-40.0); LYMPHOCYTES# 1.4 X 10^3uL (0.8-3.8); MEAN CELL VOLUME 87.7 fL (80.0-100.0); MEAN CORPUS. HGB CONCENTRATION 33.3 g/dL (32.0-36.0); MEAN CORPUSCULAR HEMOGLOBIN 29.2 pg (29.0-35.0); MEAN PLATELET VOLUME 7.7 fL (7.4-10.4); MONOCYTES 10.3 % (2.0-10.0); MONOCYTES# 1.1 X 10^3uL (0.2-1.0); NEUTROPHILS# 8.4 X 10^3uL (2.6-6.7); PLATELET COUNT 285 X 10^3uL (130-440); RED BLOOD COUNT 3.85 X 10^6uL (4.20-6.10); RED CELL DISTRIBUTION WIDTH 15.5 % (11.5-14.5); WHITE BLOOD COUNT 11.1 X 10^3uL (3.9-10.7)
[2016-06-25 07:13] LABS: HEMATOCRIT 33.8 % (42.0-54.0); HEMOGLOBIN 11.2 g/dL (14.0-18.0)
--- NOTE | 2016-06-25 09:00 | DC SUMMARY: IM Note ---
Discharge Summary: IM/Peds Provider: Date of Admission: 06/23/16 Admitting Provider: KEERTHI ALEGRIA MD Attending Provider: RIKI YIN MD Discharging Provider: RIKI YIN MD Primary Care Provider: Discharge Date: 06/25/16 - Diagnosis (1) Bacteremia due to Gram-positive bacteria Status: Acute (2) Cellulitis and abscess of foot Status: Acute (3) CHF (congestive heart failure) Status: Acute Qualifiers: Congestive heart failure type: systolic Congestive heart failure chronicity: acute on chronic Qualified Code(s): I50.23 - Acute on chronic systolic (congestive) heart failure (4) Gout attack Status: Acute Qualifiers: Gout site: ankle Gout etiology: unspecified cause Laterality: left Qualified Code(s): M10.9 - Gout, unspecified (5) Weakness Status: Chronic Hospital Course: Patient admitted for weakness and failure at home. In the setting of significant left and ankle erythema, swelling, pain. Presumably with components of gout and also infection. Blood cultures prior to hospitalization positive in 1 of 2 bottles for staph aureus. Repeat blood cultures in the hospital. Previously treated with Keflex. Started on vancomycin to which he responded well in the hospital with decreased redness, swelling, and decrease in white blood count. He was previously treated with oral steroids as an outpatient and did not require further steroid treatment for his gout. White blood count decreased from nearly 20,000 to nearly normal. Afebrile. Improved pain. Tolerating weightbearing. Energy level approaching baseline. Discussed with him today, and he feels confident for return to home. Stop vancomycin. One week course of Bactrim DS. He is on warfarin and so will check INR in 3 days. Home health care with nursing, PT, OT. With regards to CHF, he did receive additional IV Lasix early in hospitalization and responded well. Volume status at or slightly better than baseline. No evidence of acute ischemia. With regard to presumptive gout, uric acid level remains elevated. Consideration for empiric addition of allopurinol once stable in the outpatient setting. - Time Spent with Patient Total time spent providing and/or coordinating discharge services: Time with patient DS: Less than 30 minutes Discharge - Patient/Caregiver Discharge Instructions Activity Level: As tolerated. Use walker. Diet: Cardiac. Diabetic. Follow up: RIKI YIN MD [Primary Care Provider] - Next Appointment (Keep appointment for next month.) Print Language: MALTESE Home Medications: Sulfamethoxazole/Trimethoprim [Bactrim Ds Tablet] 1 tab PO BID #14 tab Orders: Home Health Care Location: Determined By Patient Disposition: HOME HEALTH CARE Discharge Summary Data - Medication History Medication History: Home Medications Acetaminophen [Tylenol Extra Strength] 500 - 1,000 mg PO TID PRN 01/26/16 Carvedilol [Coreg] 6.25 mg PO BID 01/26/16 Enalapril Maleate [Vasotec] 20 mg PO DAILY 01/26/16 Ferrous Sulfate [Ferrous Sulfate*] 1 tab PO DAILY 01/26/16 Furosemide [Lasix] 40 mg PO BID 01/26/16 Hydrocortisone 1% Cream [Cortisone 1% Cream*] 1 delmer TOPICAL BID PRN 01/26/16 Levothyroxine [Synthroid*] 88 mcg PO DAILY 01/26/16 Magnesium Oxide 500 mg PO BID 01/26/16 Omeprazole Magnesium [Prilosec Otc] 20 mg PO DAILY 01/26/16 Sodium Chloride [[place] Saline] 1 spr NASAL BID 01/26/16 Spironolactone [Aldactone*] 25 mg PO DAILY 01/26/16 Warfarin Sodium [Coumadin*] 5 mg PO DIRECTED 01/26/16 metFORMIN ER [Metformin HCl ER*] 500 mg PO DAILY 01/26/16 Carboxymethylcellulose Sodium [Refresh Tears] 1 drop EACHEYE PRN PRN 06/24/16 Cholecalciferol [Vitamin D*] 2,000 unit PO DAILY 06/24/16 Psyllium Husk (with Sugar) [Metamucil Packet] 3.4 gm PO DAILY 06/24/16 Vitamin B Complex [Stress B Complex*] 1 tab PO DAILY 06/24/16 Sulfamethoxazole/Trimethoprim [Bactrim Ds Tablet] 1 tab PO BID #14 tab 06/25/16 Inpatient Medications 06/24/16 09:00 Magnesium Oxide [Mag-Ox] 400 mg PO DAILY 06/24/16 11:00 Vancomycin HCl [Vancocin] 1,500 mg Normal Saline [Sodium Chloride 0.9% 500 ml ] 500 ml IV Q12H 06/24/16 19:45 Polyvinyl Alcohol 1.4% Ophth [Teargen] 1 drop OPHTHALMIC PRN PRN 06/25/16 09:00 Psyllium Seed [Konsyl [employer]] 1 pkt PO DAILY Procedures and tests throughout hospitalization: Completed Lab Orders 06/24/16 08:25 PT/INR [PROTIME/INR] [HEM] Routine URIC ACID [CHEM] Routine 06/24/16 08:26 BNP,NT-PRO [CHEM] Routine C-REACTIVE PROTEIN [CHEM] Routine 06/25/16 06:25 BMP [BASIC METABOLIC PANEL] [CHEM] AMDRAW BNP,NT-PRO [CHEM] AMDRAW CBC AUTO DIF, MDIF/RMOR IF IND [HEM] AMDRAW 06/25/16 08:00 INR W/ CAPI DRAW [HEM] Stat Pending Orders 06/23/16 19:20 Resuscitation Status Routine 06/24/16 08:28 Occupation Therapy Eval and Treat [OT] Routine 06/24/16 09:00 Magnesium Oxide [Mag-Ox] 400 mg PO DAILY 06/24/16 10:47 Physical Therapy Plan of Care [PT] Routine 06/24/16 11:00 Vancomycin HCl [Vancocin] 1,500 mg Normal Saline [Sodium Chloride 0.9% 500 ml ] 500 ml IV Q12H 06/24/16 16:13 Occupational Therapy Plan of Care [OT] Routine 06/24/16 19:45 Polyvinyl Alcohol 1.4% Ophth [Teargen] 1 drop OPHTHALMIC PRN PRN 06/25/16 09:00 Psyllium Seed [Konsyl [employer]] 1 pkt PO DAILY 06/25/16 10:30 vanco trough [VANCOMYCIN TROUGH] [CHEM] Routine Labs on day of discharge: Labs from last 24 hours 06/25/16 06/25/16 06/24/16 08:00 06:25 08:26 WBC 11.1 H RBC 3.85 L Hgb 11.2 L Hct 33.8 L MCV 87.7 MCH 29.2 MCHC 33.3 RDW 15.5 H Plt Count 285 MPV 7.7 Neutrophils % 75.0 Lymphocytes % 12.6 L Eosinophils % 2.0 Basophils % 0.1 Neutrophils # 8.4 H Lymphocytes # 1.4 Monocytes 10.3 H Monocytes # 1.1 H Eosinophils # 0.2 Basophils # 0.0 PT Cancelled Capillary INR 1.6 H INR Cancelled Sodium 136 L Potassium 3.8 Chloride 98 Carbon Dioxide 31 H BUN 20 Creatinine 0.7 GFR Calculation Not Reportable Glucose 86 Uric Acid Calcium 8.6 C-Reactive Protein 25.7 H NT-Pro-B Natriuret Pep 5200 H 7820 H 06/24/16 08:25 WBC RBC Hgb Hct MCV MCH MCHC RDW Plt Count MPV Neutrophils % Lymphocytes % Eosinophils % Basophils % Neutrophils # Lymphocytes # Monocytes Monocytes # Eosinophils # Basophils # PT 25.6 H Capillary INR INR 2.0 Sodium Potassium Chloride Carbon Dioxide BUN Creatinine GFR Calculation Glucose Uric Acid 7.8 Calcium C-Reactive Protein NT-Pro-B Natriuret Pep IM: Discharge Physical Exam - I&O/Vital Signs I&O: Intake & Output 06/24/16 06/25/16 06/25/16 21:59 05:59 13:59 Intake Total 1000 840 Output Total 1050 945 Balance -50 -105 Intake: IV 500 500 Left Forearm 500 500 Oral 500 340 Output: Urine 1050 945 Other: Urine Appearance Clear Clear Urine Color Yellow Yellow Voiding Method Toilet Urinal # Voids 7 3 # Bowel Movements 2 0 Vital Signs: Last Vital Signs Temp 36.6 C 06/25/16 06:38 Pulse 64 06/25/16 06:38 Resp 16 06/25/16 06:38 BP 124/57 06/25/16 06:38 Pulse Ox 95 06/25/16 06:38 Oxygen Flow Rate 1 Oxygen Delivery Method Nasal Cannula - Constitutional General appearance: Present: obese - Head Head exam: Present: normal inspection - Eye Eye exam: Present: EOMI. Absent: conjunctival injection - ENT ENT exam: Present: mucous membranes dry - Neck Neck exam: Present: full ROM - Respiratory Respiratory exam: Present: rales (bibasilar) - Cardiovascular Cardiovascular exam: Present: irregular rhythm, systolic murmur (2/6) - GI/Abdominal GI/Abdominal exam: Present: normal bowel sounds, soft. Absent: tenderness - Extremities Exam Extremities exam: Present: joint swelling (left ankle, better), edema (tr-1+), tenderness - Neurological Exam Neurological exam: Present: CN II-XII intact, oriented X3 - Skin Skin exam: Present: warm (around left ankle, better) - Allied Health Notes Allied health notes reviewed: nursing, OT, PT
[2016-06-25] MEDS: ENALAPRIL MALEATE 5 MG TABLET PO SCH (09:03)
[2016-06-25] MEDS: metFORMIN ER 500 MG TABLET PO SCH (09:03)
[2016-06-25] MEDS: PSYLLIUM SEED 1 PKT PACKET PO SCH ×2 (09:03→09:14)
[2016-06-25] MEDS: CHOLECALCIFEROL 1,000 UNIT CAPSULE PO SCH (09:03)
[2016-06-25] MEDS: MAGNESIUM OXIDE 400 MG TABLET PO SCH (09:09)
[2016-06-25] MEDS: FERROUS SULFATE 325 MG TABLET PO SCH (09:09)
[2016-06-25] MEDS: CARVEDILOL 3.125 MG TABLET PO SCH (09:09)
[2016-06-25] MEDS: FUROSEMIDE 40 MG TABLET PO SCH (09:09)
[2016-06-25] MEDS: SODIUM CHLORIDE NASAL SPRAY 44 SPRAY/44 ML BTL NASAL SCH (09:09)
[2016-06-25] MEDS ORDERED: NORMAL SALINE IV SCH (12:00)
[2016-06-25] MEDS ORDERED: VANCOMYCIN HCL IV SCH (12:00)
[2016-06-25 14:02] LABS: BASOPHILS 0.1 % (0.0-2.0); EOSINOPHILS# 0.2 X 10^3uL (0.0-0.4); HEMATOCRIT 38.1 % (42.0-54.0); HEMOGLOBIN 12.8 g/dL (14.0-18.0); LYMPHOCYTES 17.2 % (20.0-40.0); LYMPHOCYTES# 2.9 X 10^3uL (0.8-3.8); MEAN CELL VOLUME 87.7 fL (80.0-100.0); MEAN CORPUS. HGB CONCENTRATION 33.5 g/dL (32.0-36.0); MEAN CORPUSCULAR HEMOGLOBIN 29.4 pg (29.0-35.0); MEAN PLATELET VOLUME 8.1 fL (7.4-10.4); MONOCYTES# 1.7 X 10^3uL (0.2-1.0); NEUTROPHILS 71.7 % (54.0-75.0); NEUTROPHILS# 12.2 X 10^3uL (2.6-6.7); RED BLOOD COUNT 4.35 X 10^6uL (4.20-6.10); RED CELL DISTRIBUTION WIDTH 15.2 % (11.5-14.5)
[2016-06-25 14:04] LABS: CALCIUM 9.1 mg/dL (8.4-10.2); CREATININE 0.8 mg/dL (0.7-1.3); MAGNESIUM 1.9 mg/dL (1.6-2.3)
[2016-06-25] MEDS ORDERED: MAGNESIUM SULFATE 200 ML IV ONE (14:11)
[2016-06-25 14:16] LABS: TROPONIN I 0.028 ng/mL (0.00-0.034)
[2016-06-25 15:29] VITALS: BP 112/68; PULSE 66; RESP 18
--- NOTE | 2016-06-25 16:45 | CONSULTATION ---
DATE OF CONSULTATION: 06/25/16 VB NET DEVELOPER: Lauren Berrios MD REASON FOR CONSULTATION: Cardiac arrest, presumed ventricular tachycardia. HISTORY OF PRESENT ILLNESS: This is an 85-year-old male with a history of sick sinus syndrome, persistent atrial fibrillation, status post AV node ablation and pacemaker placement, chronic systolic congestive heart failure, moderate mitral regurgitation, hypertension, was admitted June 23, 2016 where he has been in the hospital for 2 days undergoing treatment for cellulitis from an abscess on his foot and gram positive bacteremia. He was treated with Vancomycin. He did receive some intravenous Lasix during his hospitalization. He was witnessed to suddenly become unresponsive by his and received brief resuscitation efforts. He was placed on telemetry and had a subsequent episode that was thought to be ventricular tachycardia, although the telemetry strips were not saved. It does show some brief nonsustained ventricular tachycardia. He is now talking with spontaneous breathing and has a good pulse. He denies chest pain. I am unable to get further history from him at this time. PAST MEDICAL HISTORY 1. Persistent atrial fibrillation, status post AV node ablation and pacemaker placement. 2. Sick sinus syndrome. 3. Chronic systolic congestive heart failure. 4. Moderate mitral regurgitation. 5. Hypertension. 6. Chronic obstructive pulmonary disease. 7. Gastroesophageal reflux disease. 8. Hypothyroidism. OUTPATIENT MEDICATIONS: Reviewed. His cardiac medications include the following : Carvedilol 6.25 mg twice daily Enalapril 20 mg daily Lasix 40 mg twice daily. Coumadin. ALLERGIES: Codeine, morphine, Amiodarone. SOCIAL HISTORY: Unable to obtain. FAMILY HISTORY: Unable to obtain. REVIEW OF SYSTEMS: Unable to obtain. PHYSICAL EXAMINATION VITAL SIGNS: Blood pressure 128/63. Heart rate 64. Oxygen saturation 95%. GENERAL: Well-nourished, well-developed. Appears fatigued and somewhat somnolent , although awakens and answers questions appropriately. HEENT: Normal. EYES: Normal. NECK: Unable to visualize JVP. No carotid bruits. Normal thyroid. HEART: Regular rate and rhythm. No murmurs, rubs or gallops. LUNGS: Clear to auscultation bilaterally. ABDOMEN: Nondistended. EXTREMITIES: +1 bilateral lower extremity edema. +2 radial pulses. Normal tone. SKIN: No rashes. NEURO: Alert. LABORATORY DATA: White blood cell count 17. Hemoglobin 12.8. Sodium 135, potassium 4.0, creatinine 0.8. Magnesium 1.9. NT-pro-BNP 7,820. ELECTROCARDIOGRAM: Ventricular paced with deep T-wave inversions across the precordium. Old EKG shows ventricular pacing with normal T-waves. IMPRESSION 1. Cardiac arrest, presumed ventricular tachycardia. 2. Chronic systolic congestive heart failure. 3. Persistent atrial fibrillation, status post AV node ablation and pacemaker placement. 4. Hypertension. 5. Cellulitis. 6. Bacteremia. PLAN: Patient is awake, although somnolent and is answering questions appropriately. He has spontaneous respirations and a good blood pressure and pulse. He received brief chest compressions, but no resuscitation medications. He has been placed on an amiodarone bolus of 150, followed by a drip. He will be transferred to [facility] for further evaluation. There his device can be interrogated to accurately assess what the rhythm was during this cardiac arrest. In addition, blood work has been drawn and is pending at the time of this dictation, although his electrolytes were reasonable this morning. Will consider ischemic workup and re-evaluation with an echocardiogram. The plan has been discussed by Dr. Heredia, and the accepting physician at [facility]. MOMO
--- NOTE | 2016-06-25 17:04 | DISCHARGE SUMMARY ---
DATE OF DISCHARGE: 06/25/16 ATTENDING PHYSICIAN: Paco Heredia MD DISCHARGE DIAGNOSIS: Cardiac arrest. ADDENDUM to prior discharge summary: HISTORY OF PRESENT ILLNESS: Patient is an 85-year-old male who was admitted 2 days ago for treatment of cellulitis and gout and weakness and decreased functionality at home. He had responded well to treatment with IV Vancomycin during his hospital stay. Blood cultures during hospitalization were negative. Prior to hospitalization, he also had blood cultures done, and these were positive and only one of two sets with staphylococcus aureus. The plan had been to transition him to home on oral antibiotics without patient follow up with Home Health Care. I was called to see the patient emergently for cardiac arrest. He was receiving his final dose of Vancomycin IV therapy and became suddenly unresponsive. At that point, he did not have a pulse, nor was there any evidence of breathing. CPR was initiated and within a matter of seconds, he developed a pulse again, and had a reasonable blood pressure. By that point, I had arrived, and he was starting to become verbally responsive. However, in the process of accessing him , he then again became unresponsive, and there was evidence of ventricular tachycardia on the telemetry which had been set up. CPR was again initiated, and as we were starting to prepare for cardioversion, he again began to move and moan. Subsequent to this, he had one more brief episode of what appeared to be ventricular tachycardia on the monitor which resolved on its own before CPR was even initiated. At the time of this dictation, he is verbally responsive and moving all 4 extremities. He has a paced rhythm with a good rate and is not having any chest pain. His blood pressure is good in the 120-160s. An EKG does not show any ST segment elevations, but shows deep T-wave inversions laterally, and these are new from prior. With regard to other studies, chest x-ray has not yet been done. Laboratory studies from this morning show that white count is decreased from the 20,000 range to 11,000. He has mild anemia which is typical for him. With regard to his electrolytes, his potassium was at 3.8. Magnesium had not been done. TREATMENT: As patient is currently responsive, we did not initiate hypothermia protocol. He did not receive epinephrine. He was started on Amiodarone at [facility]- tech protocol of 150 mg over 10 minutes. He has been started on 2 grams of magnesium sulfate. He will be sent by helicopter considering the recurrent nature of his tachycardia and the concern about spending significant portion of time in the ambulance on the way to the [facility]. I have spoken with Dr. Mcmillan of Cardiology at [facility] who has graciously accepted the patient. He will be taken directly to the Cardiac ICU. Further recommendations will be made there. Copies to: [facility] ICU, Dr. Darrel BARR
[2016-06-26 13:46] LABS: METAMYELOCYTE % (Manual) 1 % (0)
== END 2016-06-25 09:03 | disposition short-term general hospital (02) | DRG 297 ==
LOC: ER 16:54 → IN 20:38
PROVIDERS: ADMIT Family Medicine; ATTEND Internal Medicine
DX: I46.9 Cardiac arrest, cause unspecified (principal); R78.81 Bacteremia; L03.116 Cellulitis of left lower limb; B96.89 Other specified bacterial agents as the cause of diseases classified elsewhere; R26.2 Difficulty in walking, not elsewhere classified; Z86.14 Personal history of Methicillin resistant Staphylococcus aureus infection; I48.2 Chronic atrial fibrillation; I50.22 Chronic systolic (congestive) heart failure; M85.89 Other specified disorders of bone density and structure, multiple sites; E03.9 Hypothyroidism, unspecified; K21.9 Gastro-esophageal reflux disease without esophagitis; M10.9 Gout, unspecified; Z95.0 Presence of cardiac pacemaker; I10 Essential (primary) hypertension; I49.5 Sick sinus syndrome; G62.9 Polyneuropathy, unspecified; J43.9 Emphysema, unspecified; Z79.01 Long term (current) use of anticoagulants; Z79.82 Long term (current) use of aspirin; Z79.899 Other long term (current) drug therapy
CPT/HCPCS: 36415; 80048; 80202; 83735; 83880; 84484; 84550; 85007; 85025; 85027; 85610; 86140; 87040; 92950; 93005; 96365; 96375; 99285; A0425; A0429; J0696; J1940; J3370; J3475; J7040; J7050

== ENCOUNTER 2016-10-17 06:50 | Observation (INO) | payer OTHER ==
[2016-10-17 07:33] LABS: BASOPHILS 0.4 % (0.0-2.0); EOSINOPHILS 1.7 % (0.0-6.0); EOSINOPHILS# 0.1 X 10^3uL (0.0-0.4); HEMATOCRIT 37.7 % (42.0-54.0); LYMPHOCYTES 13.9 % (20.0-40.0); MEAN CELL VOLUME 84.7 fL (80.0-100.0); MEAN CORPUS. HGB CONCENTRATION 31.9 g/dL (32.0-36.0); MEAN PLATELET VOLUME 8.4 fL (7.4-10.4); MONOCYTES 11.3 % (2.0-10.0); MONOCYTES# 0.8 X 10^3uL (0.2-1.0); NEUTROPHILS 72.7 % (54.0-75.0); NEUTROPHILS# 5.5 X 10^3uL (2.6-6.7); PLATELET COUNT 227 X 10^3uL (130-440); RED BLOOD COUNT 4.45 X 10^6uL (4.20-6.10); WHITE BLOOD COUNT 7.4 X 10^3uL (3.9-10.7)
[2016-10-17 07:37] LABS: RED CELL DISTRIBUTION WIDTH 17.9 % (11.5-14.5)
[2016-10-17 07:43] LABS: ALBUMIN 3.9 g/dL (3.5-5.0); ALKALINE PHOSPHATASE 57 U/L (38-126); ALT 33 U/L (21-72); AST 24 U/L (17-59); BILIRUBIN, DIRECT 0.3 mg/dL (0.0-0.4); BILIRUBIN, TOTAL 0.6 mg/dL (0.2-1.3); BLOOD UREA NITROGEN 23 mg/dL (9-20); CHLORIDE 105 mmol/L (98-107); GLUCOSE 101 mg/dL (70-100); MAGNESIUM 1.9 mg/dL (1.6-2.3); POTASSIUM 4.2 mmol/L (3.5-5.1); SODIUM 142 mmol/L (137-145)
[2016-10-17 07:44] LABS: INR 2.8; PARTIAL THROMBOPLASTIN TIME 34 sec (24-38)
[2016-10-17] MEDS ORDERED: NORMAL SALINE 500 ML IV ONE (07:50)
[2016-10-17] MEDS ORDERED: ACETAMINOPHEN 325 MG TABLET PO ONE (07:50)
[2016-10-17 07:54] LABS: TROPONIN I 0.013 ng/mL (0.00-0.034)
--- NOTE | 2016-10-17 08:15 | CT REPORT ---
HISTORY: Fall. Closed head injury. COMPARISON: None available. TECHNIQUE: Axial non-contrast images obtained from skull vertex through foramen magnum. Dose reduction technique was utilized. FINDINGS: Mild to moderate diffuse cortical atrophy. This appears to be age appropriate. Decreased density periventricular and deep cortical white matter probably representing the sequela of underlying chronic ischemic small vessel disease. No intracranial mass. No intracranial hemorrhage. No extra-axial fluid collection. No midline shift. Within the limitations of the study no definite evidence for acute or evolving stroke. No calvarial fracture. Clear paranasal sinuses and mastoid air cells. IMPRESSION: No acute intracranial abnormality. Final Electronic Signature: This report was electronically signed by Francisco Miles MD, FACR on 10/17/2016 8:12 AM. lacey /
--- NOTE | 2016-10-17 08:18 | CT REPORT ---
HISTORY: Fall. Neck pain. COMPARISON: None available. TECHNIQUE: This examination was performed using automated exposure control, adjustment of mA or kV according to patient size, and/or use of iterative reconstruction technique. Axial thin section images obtained f rom skull base through head of the clavicles. Sagittal and coronal reformat images obtained. FINDINGS: Severe diffuse cervical spondylosis. Disc space narrowing with endplate sclerosis and degenerative sp ur formation at all levels. Degenerative facet joint arthropathy and uncovertebral joint arthropathy at all levels. Minimal anterolisthesis C5 with respect to C6. Multilevel bony neural foraminal narrowing. No definite evidence for acute fracture. No prevertebral soft tissue swelling. No focal lytic or sclerotic lesions. Diffuse vascular calcifications. Spiculated nodule right lung apex measuring approximately 1.6 x 1.8 cm in size. Bronchogenic carcinom a cannot be excluded. CT chest without contrast advised for further evaluation. IMPRESSION: Diffuse cervical spondylosis. No definite evidence for fracture. Spiculated lesion right lung apex. Further evaluation with noncontrast enhanced CT of the thorax sol mmended. Final Electronic Signature: This report was electronically signed by Francisco Miles MD, FACR on 10/17/2016 8:16 AM. lacey /
[2016-10-17] MEDS ORDERED: HOME MEDICATION LIST NEEDED 1 EA EACH MC ONE (08:58)
[2016-10-17] MEDS ORDERED: POLYETHYLENE GLYCOL 3350 17 GM POWD.PACK PO PRN (08:58)
[2016-10-17] MEDS ORDERED: ZOLPIDEM TARTRATE 5 MG TABLET PO PRN (08:58)
[2016-10-17] MEDS ORDERED: MAG-AL PLUS XS SUSP 30 ML UDC PO PRN (08:58)
[2016-10-17] MEDS ORDERED: NORMAL SALINE 1,000 ML IV SCH (09:00)
--- NOTE | 2016-10-17 09:00 | RADIOLOGY REPORT ---
HISTORY: Fall. Chest pain. COMPARISON: None available. FINDINGS: 1 view of the chest obtained. Heart size upper limits normal. Mildly prominent central pulmonary ves sels. Mild tortuosity and calcification of the aorta. No confluent alveolar infiltrates. No pleural effusions. No pneumothorax. Dual-lead left-sided transvenous pacemaker. IMPRESSION: Mild cardiac enlargement and mild prominence of central pulmonary vessels without definite radiograph ic evidence for congestive heart failure or volume overload. Final Electronic Signature: This report was electronically signed by Francisco Miles MD, FACR on 10/17/2016 8:57 AM. lacey /
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
[2016-10-17] MEDS: NORMAL SALINE 1,000 ML IV SCH ×2 (11:20→23:56)
[2016-10-17] MEDS ORDERED: ENALAPRIL MALEATE 5 MG TABLET PO SCH (12:00)
[2016-10-17] MEDS ORDERED: SODIUM CHLORIDE NASAL SPRAY 44 SPRAY/44 ML BTL NASAL PRN (12:39)
--- NOTE | 2016-10-17 14:24 | RADIOLOGY REPORT ---
HISTORY: Fall. COMPARISON: None. TECHNIQUE: AP and lateral left humerus. FINDINGS: There is no evidence of acute fracture. There is diffuse osteopenia. 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 IMPRESSION: No acute fracture. Final Electronic Signature: This report was electronically signed by Bladimir Cedillo MD on 10/17/2016 2: 21 PM. abby /
--- NOTE | 2016-10-17 14:25 | RADIOLOGY REPORT ---
HISTORY: Fall. COMPARISON: None. TECHNIQUE: Three views left shoulder. FINDINGS: There is superior subluxation of the glenohumeral joint with marked narrowing of the space within the undersurface of the acromium and humeral head compatible with chronic rotator cuff tear. There is no edwin dislocation. The acromioclavicular joint appears anatomic. No acute fractures are identified. There is moderate degenerative arthritis involving the glenohumeral joint and mild degenerative art hritis involving the acromioclavicular joint. There is diffuse osteopenia. IMPRESSION: 1. No acute fracture or dislocation. 2. Moderate degenerative arthritis glenohumeral joint with evidence of chronic rotator cuff tear. 3. Mild degenerative arthritis acromioclavicular joint. Final Electronic Signature: This report was electronically signed by Bladimir Cedillo MD on 10/17/2016 2: 23 PM. abby /
[2016-10-17] MEDS: FUROSEMIDE 40 MG TABLET PO SCH (15:27)
[2016-10-17 15:42] LABS: URINE APPEARANCE CLEAR; URINE COLOR YELLOW; URINE SPECIFIC GRAVITY > OR = 1.030 (0.001-1.035)
[2016-10-17 15:43] LABS: URINE BACTERIA NONE SEEN (<10/hpf); URINE BILIRUBIN NEGATIVE (NEGATIVE); URINE BLOOD TRACE (NEGATIVE); URINE GLUCOSE NORMAL (NEGATIVE); URINE KETONE 5mg/dL (NEGATIVE); URINE LEUKOCYTE ESTERASE NEGATIVE (NEGATIVE); URINE MUCUS UP TO 25%/lpf (Up to 25%); URINE NITRITE NEGATIVE (NEGATIVE); URINE PROTEIN NEGATIVE (NEG - TRACE); URINE RBC 0-5/hpf (0-5/hpf); URINE SQUAMOUS EPITHELIAL CELL 0-5/hpf (<= 15/hpf); URINE UROBILINOGEN NORMAL (NEG-1mg/dL); URINE WBC 0-4/hpf (0-4/hpf)
[2016-10-17] MEDS: ACETAMINOPHEN 325 MG TABLET PO PRN (15:53)
[2016-10-17] MEDS: FERROUS SULFATE 325 MG TABLET PO SCH (16:47)
[2016-10-17] MEDS: CHOLECALCIFEROL 1,000 UNIT CAPSULE PO SCH (16:48)
[2016-10-17] MEDS: PROBIOTIC 1 CAP CAPSULE PO SCH (16:48)
[2016-10-17] MEDS ORDERED: WARFARIN SODIUM 5 MG TABLET PO SCH (18:00)
[2016-10-18 06:28] LABS: BASOPHILS 0.4 % (0.0-2.0); EOSINOPHILS 2.7 % (0.0-6.0); EOSINOPHILS# 0.2 X 10^3uL (0.0-0.4); HEMATOCRIT 34.1 % (42.0-54.0); HEMOGLOBIN 11.1 g/dL (14.0-18.0); LYMPHOCYTES 25.4 % (20.0-40.0); LYMPHOCYTES# 1.9 X 10^3uL (0.8-3.8); MEAN CELL VOLUME 83.5 fL (80.0-100.0); MEAN CORPUS. HGB CONCENTRATION 32.6 g/dL (32.0-36.0); MEAN CORPUSCULAR HEMOGLOBIN 27.2 pg (29.0-35.0); MEAN PLATELET VOLUME 8.4 fL (7.4-10.4); MONOCYTES 10.3 % (2.0-10.0); MONOCYTES# 0.8 X 10^3uL (0.2-1.0); NEUTROPHILS 61.2 % (54.0-75.0); NEUTROPHILS# 4.6 X 10^3uL (2.6-6.7); PLATELET COUNT 210 X 10^3uL (130-440); RED BLOOD COUNT 4.09 X 10^6uL (4.20-6.10); WHITE BLOOD COUNT 7.5 X 10^3uL (3.9-10.7)
[2016-10-18 06:33] LABS: ALBUMIN 3.3 g/dL (3.5-5.0); ALKALINE PHOSPHATASE 48 U/L (38-126); ALT 31 U/L (21-72); AST 22 U/L (17-59); BILIRUBIN, DIRECT 0.3 mg/dL (0.0-0.4); BILIRUBIN, TOTAL 0.5 mg/dL (0.2-1.3); BLOOD UREA NITROGEN 15 mg/dL (9-20); CALCIUM 9.2 mg/dL (8.4-10.2); CHLORIDE 106 mmol/L (98-107); GLUCOSE 87 mg/dL (70-100); POTASSIUM 3.9 mmol/L (3.5-5.1); SODIUM 140 mmol/L (137-145); TOTAL PROTEIN 6.2 g/dL (6.3-8.2)
[2016-10-18 06:37] LABS: INR 3.2
[2016-10-18] MEDS: PANTOPRAZOLE 40 MG TABLET PO SCH (06:39)
[2016-10-18] MEDS: LEVOTHYROXINE 88 MCG TABLET PO SCH (06:39)
[2016-10-18] MEDS: FUROSEMIDE 40 MG TABLET PO SCH ×2 (06:39→13:46)
[2016-10-18 07:00] LABS: RED CELL DISTRIBUTION WIDTH 17.8 % (11.5-14.5)
--- NOTE | 2016-10-18 09:15 | PROGRESS NOTE: IM APSO ---
Assessment and Plan - Date of Encounter Date of Encounter: 10/18/16 (1) Fall, accidental Status: Acute Assessment and plan: Fall from bed. Closed head injury but no evidence of intracranial bleed or neurologic compromise. Neck injury but no evidence of fracture. Left arm injury with contusions and skin tears but no evidence of fracture. Continued symptomatic/supportive care. Plan for transition to a [facility]. Awaiting physical therapy evaluation. Current Visit: Yes (2) Peripheral sensory neuropathy Status: Acute Assessment and plan: Severe and progressive. Contributing to multiple falls. Current Visit: Yes (3) Weakness Status: Chronic Assessment and plan: Gradual weakness and debilitation. Contributing to the above. Current Visit: Yes (4) Atrial fibrillation, controlled Status: Acute Assessment and plan: Status post ablation with pacemaker placement. Rate is good. Anticoagulated. Current Visit: Yes (5) Systolic CHF Status: Acute Assessment and plan: Appears to be at baseline. Continue current medication regimen. Cardiology appointment with echocardiogram pending for this morning. Current Visit: Yes (6) Ventricular tachycardia Status: Chronic Assessment and plan: With prolonged QT. Has LifeVest in place. Is still planning to go ahead with implanted defibrillator if we can reach a point of medical stability. Current Visit: Yes (7) COPD (chronic obstructive pulmonary disease) Status: Chronic Assessment and plan: Appears to be at baseline. Current Visit: Yes (8) Pulmonary mass Status: Acute Assessment and plan: Identified on CT neck involving right upper lobe. Will order dedicated chest CT with contrast. Spiculated appearance. With long smoking history and with age, concern for possible malignancy. Current Visit: Yes (9) Decubitus ulcer of left foot, stage 2 Status: Chronic Assessment and plan: Continues to work with podiatry. Most recent culture showing enterococcus. Remains on Levofloxacin. No evidence of systemic infection at this time. Current Visit: Yes (10) DVT prophylaxis Status: Acute Assessment and plan: Anticoagulated with warfarin. Current Visit: Yes - Time Spent With Patient Total time spent with greater than 50% in coordination of care (as documented) at patient's floor/unit and/or counseling patient: 25 - 35 minutes Estimated anticipated discharge: [facility] w/i 1-2 days IM: PN Subjective General: fatigue, no confusion, no fever, no chills HEENT: no headache Cardiovascular: no chest pain, no palpitations Respiratory: no cough, no wheeze, no SOB Gastrointestinal: no abdominal pain, no nausea, no vomiting Musculoskeletal: other (left arm pain and areas of contusion) Integumentary: wound (left foot decubitus ulcer, multiple left arm skin tears) Neurological: numbness (bilateral lower extremity and to lesser degree upper extremity (baseline)), limb weakness (diffuse, lower extremities more than upper extremities (baseline)) IM: PN Objective Exam - I&O/Vital Signs I&O: Intake & Output 10/17/16 10/18/16 10/18/16 21:59 05:59 13:59 Intake Total 1422 931 Output Total 350 830 Balance 1072 101 Intake: IV 592 781 Left Antecubital 592 781 Oral 830 150 Output: Urine 350 830 Other: Urine Appearance Clear Clear Urine Color Yellow Yellow Voiding Method Urinal Urinal # Voids 4 # Bowel Movements 1 Vital Signs: Last Vital Signs Temp 36.4 C L 10/18/16 06:18 Pulse 72 10/18/16 06:18 Resp 15 10/18/16 06:18 BP 112/82 10/18/16 06:18 Pulse Ox 99 10/18/16 06:18 Oxygen Flow Rate 2.5 Oxygen Delivery Method Nasal Cannula - Constitutional General appearance: Present: obese. Absent: acute distress - Head Head exam: Absent: atraumatic (contusions on the left face and scalp) - Eye Eye exam: Present: EOMI - ENT ENT exam: Present: mucous membranes moist - Neck Neck exam: Absent: full ROM (careful limited range of motion) - Respiratory Respiratory exam: Present: decreased breath sounds, rales (mild, bibasilar). Absent: accessory muscle use, rhonchi, wheezes - Cardiovascular Cardiovascular exam: Present: RRR, systolic murmur (1/6 holosystolic). Absent: S3 - GI/Abdominal GI/Abdominal exam: Present: normal bowel sounds, soft. Absent: organomegaly, rebound, rigid, tenderness - Extremities Exam Extremities exam: Present: edema (left greater than right (1+)). Absent: calf tenderness - Neurological Exam Neurological exam: Present: alert, oriented X3 - Psychiatric Psychiatric exam: Present: flat affect. Absent: anxious - Skin Skin exam: Present: other (Scattered ecchymoses. Multiple skin tears.) - Allied Health Notes Allied health notes reviewed: nursing - Lab Labs: Laboratory Last Values WBC 7.5 X 10^3uL (3.9-10.7) 10/18/16 05:55 RBC 4.09 X 10^6uL (4.20-6.10) L 10/18/16 05:55 Hgb 11.1 g/dL (14.0-18.0) L 10/18/16 05:55 Hct 34.1 % (42.0-54.0) L 10/18/16 05:55 MCV 83.5 fL (80.0-100.0) 10/18/16 05:55 MCH 27.2 pg (29.0-35.0) L 10/18/16 05:55 MCHC 32.6 g/dL (32.0-36.0) 10/18/16 05:55 RDW 17.8 % (11.5-14.5) H 10/18/16 05:55 Plt Count 210 X 10^3uL (130-440) 10/18/16 05:55 MPV 8.4 fL (7.4-10.4) 10/18/16 05:55 Neutrophils % 61.2 % (54.0-75.0) 10/18/16 05:55 Lymphocytes % 25.4 % (20.0-40.0) 10/18/16 05:55 Eosinophils % 2.7 % (0.0-6.0) 10/18/16 05:55 Basophils % 0.4 % (0.0-2.0) 10/18/16 05:55 Neutrophils # 4.6 X 10^3uL (2.6-6.7) 10/18/16 05:55 Lymphocytes # 1.9 X 10^3uL (0.8-3.8) 10/18/16 05:55 Monocytes 10.3 % (2.0-10.0) H 10/18/16 05:55 Monocytes # 0.8 X 10^3uL (0.2-1.0) 10/18/16 05:55 Eosinophils # 0.2 X 10^3uL (0.0-0.4) 10/18/16 05:55 Basophils # 0.0 X 10^3uL (0.0-0.1) 10/18/16 05:55 PT 40.6 sec (13.0-16.6) H 10/18/16 05:55 INR 3.2 10/18/16 05:55 PTT 34 sec (24-38) 10/17/16 07:10 Sodium 140 mmol/L (137-145) 10/18/16 05:55 Potassium 3.9 mmol/L (3.5-5.1) 10/18/16 05:55 Chloride 106 mmol/L (98-107) 10/18/16 05:55 Carbon Dioxide 24 mmol/L (22-30) 10/18/16 05:55 BUN 15 mg/dL (9-20) 10/18/16 05:55 Creatinine 0.6 mg/dL (0.7-1.3) L 10/18/16 05:55 GFR Calculation Not Reportable 10/18/16 05:55 Glucose 87 mg/dL (70-100) 10/18/16 05:55 Calcium 9.2 mg/dL (8.4-10.2) 10/18/16 05:55 Magnesium 1.9 mg/dL (1.6-2.3) 10/17/16 07:10 Total Bilirubin 0.5 mg/dL (0.2-1.3) 10/18/16 05:55 Direct Bilirubin 0.3 mg/dL (0.0-0.4) 10/18/16 05:55 AST 22 U/L (17-59) 10/18/16 05:55 ALT 31 U/L (21-72) 10/18/16 05:55 Alkaline Phosphatase 48 U/L (38-126) 10/18/16 05:55 Troponin I 0.013 ng/mL (0.00-0.034) 10/17/16 07:10 Total Protein 6.2 g/dL (6.3-8.2) L 10/18/16 05:55 Albumin 3.3 g/dL (3.5-5.0) L 10/18/16 05:55 Urine Color Yellow 10/17/16 13:00 Urine Appearance Clear 10/17/16 13:00 Urine pH 5.0 (5-7) 10/17/16 13:00 Ur Specific [place] > or = 1.030 (0.001-1.035) 10/17/16 13:00 Urine Protein Negative (NEG - TRACE) 10/17/16 13:00 Urine Ketones 5mg/dl (NEGATIVE) A 10/17/16 13:00 Urine Blood Trace (NEGATIVE) A 10/17/16 13:00 Urine Nitrate Negative (NEGATIVE) 10/17/16 13:00 Urine Bilirubin Negative (NEGATIVE) 10/17/16 13:00 Urine Urobilinogen Normal (NEG-1mg/dL) 10/17/16 13:00 Ur Leukocyte Esterase Negative (NEGATIVE) 10/17/16 13:00 Urine RBC 0-5/hpf (0-5/hpf) 10/17/16 13:00 Urine WBC 0-4/hpf (0-4/hpf) 10/17/16 13:00 Ur Squamous Epith Cells 0-5/hpf (<= 15/hpf) 10/17/16 13:00 Urine Bacteria None seen (<10/hpf) 10/17/16 13:00 Urine Mucus Up to 25%/lpf (Up to 25%) 10/17/16 13:00 Urine Glucose Normal (NEGATIVE) 10/17/16 13:00 Quality Questions - VTE Prophylaxis Assessment VTE Present on Admission?: No Patient at risk for venous thromboembolism?: Yes VTE Risk Level: High Risk Pharmaceutical VTE prophylaxis contraindication reason: N/A- VTE prophylaxsis ordered Mechanical VTE prophylaxis contraindication reason: not indicated (1) Fall, accidental Qualifiers: Encounter type: initial encounter Qualified Code(s): W19.XXXA - Unspecified fall, initial encounter (5) Systolic CHF Qualifiers: Congestive heart failure chronicity: chronic Qualified Code(s): I50.22 - Chronic systolic (congestive) heart failure (7) COPD (chronic obstructive pulmonary disease) Qualifiers: COPD type: emphysema Emphysema type: unspecified Qualified Code(s): J43.9 - Emphysema, unspecified
[2016-10-18] MEDS: PSYLLIUM SEED 1 PKT PACKET PO SCH (09:50)
[2016-10-18] MEDS: LEVOFLOXACIN 250 MG TABLET PO SCH (09:50)
[2016-10-18] MEDS: POTASSIUM CHLORIDE ER 10 MEQ TABLET PO SCH (09:50)
[2016-10-18] MEDS: VITAMIN B COMPLEX 1 TABLET PO SCH (09:50)
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
[2016-10-18] MEDS: ENALAPRIL MALEATE 5 MG TABLET PO SCH (11:34)
--- NOTE | 2016-10-18 12:51 | CT REPORT ---
HISTORY: Follow-up lung lesion. COMPARISON: CT cervical spine October 17, 2016. TECHNIQUE: This examination was performed using automated exposure control, adjustment of mA or kV according to patient size, and/or use of iterative reconstruction technique. Axial CT imaging from the thoracic i nlet through the upper abdomen following administration of IV contrast. 100cc Isovue 300 contrast. FINDINGS: Axial image #11 best demonstrates an approximately 1.3 x 1.2 cm noncalcified spiculated lesion in the medial aspect of the right upper lobe. There is minimal scarring at the lung bases. Otherwise the juan ngs are clear. No effusion or pneumothorax. No pathologic mediastinal lymphadenopathy. There is mild four-chamber cardiac enlargement. No paracar dial effusion. There is a cardiac pacer and distal leads in good position. No destructive or blastic osseous process. Visualized upper abdominal organs are normal. The patient is status post cholecystectomy. No hiatal hernia. IMPRESSION: 1. Approximately 1.3 x 1.2 cm spiculated lesion right upper lobe. This could represent malignancy or scar. Further evaluation with PET imaging is recommended. Final Electronic Signature: This report was electronically signed by Yoni Chacon MD on 10/18/2016 12: 49 PM. sross /
[2016-10-18] MEDS ORDERED: WARFARIN SODIUM 2.5 MG TABLET PO ONE ×2 (16:00→18:00)
[2016-10-18] MEDS: FERROUS SULFATE 325 MG TABLET PO SCH (17:52)
[2016-10-18] MEDS: PROBIOTIC 1 CAP CAPSULE PO SCH (17:52)
[2016-10-18] MEDS: CHOLECALCIFEROL 1,000 UNIT CAPSULE PO SCH (17:52)
[2016-10-18] MEDS: ACETAMINOPHEN 325 MG TABLET PO PRN (21:55)
[2016-10-18] MEDS ORDERED: O2 HUMIDIFIER 650 ML BOTTLE INHALATION ONE (22:08)
[2016-10-19 06:18] LABS: BLOOD UREA NITROGEN 15 mg/dL (9-20); CHLORIDE 103 mmol/L (98-107); GLUCOSE 86 mg/dL (70-100); MAGNESIUM 1.6 mg/dL (1.6-2.3); POTASSIUM 3.5 mmol/L (3.5-5.1); SODIUM 136 mmol/L (137-145)
[2016-10-19] MEDS: FUROSEMIDE 40 MG TABLET PO SCH ×2 (06:30→13:11)
[2016-10-19] MEDS: LEVOTHYROXINE 88 MCG TABLET PO SCH (06:30)
[2016-10-19] MEDS: PANTOPRAZOLE 40 MG TABLET PO SCH (06:30)
[2016-10-19 06:53] LABS: INR 3.3
[2016-10-19] MEDS: PSYLLIUM SEED 1 PKT PACKET PO SCH (08:49)
[2016-10-19] MEDS: POTASSIUM CHLORIDE ER 10 MEQ TABLET PO SCH (08:50)
[2016-10-19] MEDS: LEVOFLOXACIN 250 MG TABLET PO SCH (08:50)
[2016-10-19] MEDS: VITAMIN B COMPLEX 1 TABLET PO SCH (08:50)
[2016-10-19] MEDS: ENALAPRIL MALEATE 5 MG TABLET PO SCH (08:51)
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
[2016-10-19 11:34] VITALS: RESP 20
[2016-10-19 15:15] VITALS: BP 114/39; PULSE 68; TEMP 99; O2SAT 90
[2016-10-19] MEDS ORDERED: WARFARIN SODIUM 5 MG TABLET PO SCH (18:00)
== END 2016-10-19 15:43 ==
LOC: ER 06:50 → INTOOBSV 08:58 → IN 08:58
PROVIDERS: ADMIT Family Medicine; ATTEND Internal Medicine
DX: S09.90XA Unspecified injury of head, initial encounter (principal); W06.XXXA Fall from bed, initial encounter; Z86.74 Personal history of sudden cardiac arrest; M87.052 Idiopathic aseptic necrosis of left femur; D50.9 Iron deficiency anemia, unspecified; L89.892 Pressure ulcer of other site, stage 2; J44.9 Chronic obstructive pulmonary disease, unspecified; R53.1 Weakness; G60.8 Other hereditary and idiopathic neuropathies; E03.9 Hypothyroidism, unspecified; R91.8 Other nonspecific abnormal finding of lung field; I34.0 Nonrheumatic mitral (valve) insufficiency; I47.2 Ventricular tachycardia; I48.2 Chronic atrial fibrillation; I50.22 Chronic systolic (congestive) heart failure; M10.9 Gout, unspecified; M48.06 Spinal stenosis, lumbar region; G31.84 Mild cognitive impairment of uncertain or unknown etiology; I10 Essential (primary) hypertension; Z79.01 Long term (current) use of anticoagulants; Z79.899 Other long term (current) drug therapy
CPT/HCPCS: 36415; 70450; 71010; 71260; 72125; 80048; 80076; 81001; 83735; 84484; 85025; 85610; 85730; 93041; 94760; 96360; 99285; A0425; A0429; E0555; G0378; J7030; J7040

== ENCOUNTER 2016-10-19 19:19 | Emergency (ER) | payer OTHER ==
[2016-10-19 19:59] LABS: BASOPHILS 0.2 % (0.0-2.0); EOSINOPHILS 0.4 % (0.0-6.0); HEMATOCRIT 36.5 % (42.0-54.0); HEMOGLOBIN 11.8 g/dL (14.0-18.0); LYMPHOCYTES# 1.5 X 10^3uL (0.8-3.8); MEAN CELL VOLUME 83.6 fL (80.0-100.0); MEAN CORPUS. HGB CONCENTRATION 32.4 g/dL (32.0-36.0); MEAN CORPUSCULAR HEMOGLOBIN 27.1 pg (29.0-35.0); MEAN PLATELET VOLUME 9.1 fL (7.4-10.4); MONOCYTES 11.1 % (2.0-10.0); MONOCYTES# 1.3 X 10^3uL (0.2-1.0); NEUTROPHILS 75.3 % (54.0-75.0); NEUTROPHILS# 8.6 X 10^3uL (2.6-6.7); PLATELET COUNT 217 X 10^3uL (130-440); RED BLOOD COUNT 4.36 X 10^6uL (4.20-6.10); RED CELL DISTRIBUTION WIDTH 17.5 % (11.5-14.5); WHITE BLOOD COUNT 11.4 X 10^3uL (3.9-10.7)
[2016-10-19 20:11] LABS: A/G RATIO 1.1; ALBUMIN 3.8 g/dL (3.5-5.0); ALKALINE PHOSPHATASE 51 U/L (38-126); ALT 37 U/L (21-72); AST 38 U/L (17-59); BILIRUBIN, TOTAL 1.2 mg/dL (0.2-1.3); BLOOD UREA NITROGEN 17 mg/dL (9-20); CALCIUM 9.2 mg/dL (8.4-10.2); CHLORIDE 99 mmol/L (98-107); GLUCOSE 105 mg/dL (70-100); POTASSIUM 3.8 mmol/L (3.5-5.1); SODIUM 136 mmol/L (137-145); TOTAL PROTEIN 7.2 g/dL (6.3-8.2)
[2016-10-19] MEDS ORDERED: PIPERACILLIN /TAZO 4.5 GM/10 ML VIAL IV ONE (20:35)
[2016-10-19] MEDS ORDERED: NORMAL SALINE 100 ML IV ONE (20:36)
[2016-10-19 21:09] LABS: INR 2.6; PARTIAL THROMBOPLASTIN TIME 38 sec (24-38)
[2016-10-19] MEDS ORDERED: VANCOMYCIN HCL 1,000 MG/20 ML VIAL ONE (21:11)
[2016-10-19] MEDS ORDERED: NORMAL SALINE 250 ML IV ONE (21:11)
--- NOTE | 2016-10-19 21:47 | ER NURSING DOCUMENTATION ---
Nurse's Notes [facility] Name:Ramírez Mcdaniels Age:86 yrs Sex:Male :1930 Arrival Date:10/19/2016 Time:19:19 Bed4 Private MD:Paco Heredia Diagnosis:Osteomyelitis Acute of Ankle/Foot Presentation: 10/19 19:27 Presenting complaint: according to nursse from [facility] pt admitted from med/surg, lb developed fever and hypotension. sent to ed for eval by DR Heredia. Transition of care: [facility]. Notified ED Physician of Dr. Ross notified. Time Last Known Well for the patient was this am. Care prior to arrival: None. 19:27 Acuity: KAYLAN 2 lb 19:27 Method Of Arrival: Wheelchair lb Triage Assessment: 19:37 General: Appears in no apparent distress, Behavior is appropriate for age, pleasant. lb Pain: Denies pain. Cardiovascular: No deficits noted. Respiratory: Airway is patent Trachea midline Respiratory effort is even, unlabored, Respiratory pattern is regular, symmetrical, Breath sounds are clear bilaterally. Derm: Skin is thin, with poor turgor has skin tears on right and left arms Decubitus located on left foot approximately is stage II is draining. Historical: - Allergies: Codeine; Morphine; Amiodarone; - Home Meds: 1. Omeprazole Oral 2. enalapril maleate Oral 3. Warfarin Oral 4. Furosemide Oral 5. levothyroxine oral 6. Vitamin D2 oral 7. Ferrous Sulfate Oral 8. Metoprolol Tartrate Oral 9. Levofloxacin Oral 10. Potassium Chloride Oral - PMHx: Hypertension; CAD; ATRIAL FIB; gastritis; CHF; COPD; - PSHx: Unable to obtain; - Tetanus: < 10 years. - Ebola Screening: : Patient denies exposure to infectious person. Patient denies travel to an Ebola-affected area in the 21 days before illness onset. . - Immunization history: Flu Vaccine < 1 year. - Social history: Smoking status: Patient states former smoker of tobacco. Patient/guardian denies using alcohol. - Code Status:: Full code. Screenin:39 Infectious Disease Risk None. Abuse screen: Denies threats or abuse. Denies injuries lb from another. Nutritional screening: No deficits noted. Assessment: 19:39 See Triage Assessment done by same RN. Respiratory: Airway is patent Trachea midline lb Respiratory effort is even, unlabored, Respiratory pattern is regular, symmetrical. Derm: Skin is thin, with poor turgor Decubitus located on left foot. Vital Signs: 19:24 BP 113 / 52; Pulse 72; Resp 18; Temp 98.2; Pulse Ox 90% on R/A; mv 20:23 BP 88 / 54; Pulse 70; Resp 22; Pulse Ox 99% on 2 lpm NC; lb 20:41 BP 110 / 43; Pulse 80; Resp 18; Pulse Ox 98% on 2 lpm NC; Pain 0/10; lb 21:26 BP 119 / 40; Pulse 94; Resp 16; Pulse Ox 98% on 2 lpm NC; Pain 0/10; lb 21:33 Pulse 76; Resp 18; Temp 97.7; Pulse Ox 96% on 2 lpm NC; Pain 0/10; lc ED Course: 07:40 Labs drawn. (by ED staff). Sent per order to lab. First set of blood cultures drawn by [facility]. Inserted peripheral IV: 20 gauge in left antecubital area and blood collected. Oxygen Oxygen administration via nasal cannula @ 2L/min. 19:21 Patient arrived in ED. jl 19:21 Paco Heredia MD is Private Physician. jl 19:26 Alex Ross MD is Attending Physician. be 19:27 Alba Cates is Primary Nurse. lb 19:28 Triage completed. lb 19:39 Valuables Remains with patient Patient has correct armband on for positive lb identification. Placed in gown. Bed in low position. Call light in reach. Side rails up X2. 19:42 Patient moved to radiology. dnn 20:00 patient monitor on. Pulse ox on. NIBP On - RN Monitoring Only. lc 20:18 Patient moved back from radiology. dnn 20:25 Labs drawn. By Lab Staff. lc 20:35 EKG done. (by ED staff). Reviewed by Alex Ross MD. 21:30 EKG attached lb Administered Medications: 19:47 Drug: NS 0.9% 2000 ml; Route: IV; Rate: bolus; Site: left antecubital; lb 21:30 Follow up: IV Status: Infusing continued upon transfer; IV Intake: 1500ml 20:25 Drug: Zosyn - Piperacillin-Tazobactam 4.5 grams; {Note: STARTED IMMEDIATELY AFTER 2ND lc BLOOD CULTURE DONE.} Route: IVPB; Infused Over: 30 mins; Site: left antecubital; Delivery: Pump; 21:13 Follow up: IV Status: Completed infusion; IV Intake: 100ml lc 21:07 Drug: vancomycin 1 grams; Route: IVPB; Infused Over: 2 hrs; Site: left antecubital; lc Delivery: Pump; 21:31 Follow up: IV Status: Infusing continued upon transfer; IV Intake: 60ml lc Intake: 21:13 IV: 100ml; Total: 100ml. lc 21:30 IV: 1500ml; Total: 1600ml. lc 21:31 IV: 60ml; Total: 1660ml. lc Outcome: 21:00 ER care complete, transfer ordered by . be 21:29 [facility] Acceptance Time: October 19, 2016 at 21:00 Patient's face sheet was faxed to accepting facility. Face Sheet included patient's name, address, age, gender, contact information and insurance information. Patient will be transported by: [facility] ground. Report called to: ORLANDO FABIAN Nurse and Physician Charting and Notes were sent to Accepting Facility. All tests and/or procedures with results, if applicable, were sent to accepting facility. 21:33 Condition: stable lc 21:33 Instructed on need for transfer Demonstrated understanding of instructions. 21:47 Patient left the ED. lc Signatures: Elizabteh Dowell RN RN lc Elliott, Brian, MD MD be Norman, David dnn vogel, margaux mv Bollock, Lynda lb Lietz, Jeff jl
--- NOTE | 2016-10-19 21:47 | ER PHYSICIAN DOCUMENTATION ---
Physician Documentation [facility] Name:Ramírez Mcdaniels Age:86 yrs Sex:Male :1930 Arrival Date:10/19/2016 Time:19:19 Bed4 Private MD:Paco Heredia ED, Brian Disposition: 10/19/16 21:00 Transfer ordered to [facility]. Diagnosis is Osteomyelitis Acute of Ankle/Foot. - Reason for transfer: Higher level of care. - Accepting physician is Dr. Ware, Hospitalist, [facility]. - Condition is Fair. - Problem is an ongoing problem. - Symptoms have worsened. COBRA Form completed? Yes Transfer - Mode of Transportation Ambulance HPI: 10/19 20:28 This 86 yrs old Male presents to ER via Wheelchair with complaints of Fever. be 20:28 The patient reports fever, that was measured at 102 degrees Fahrenheit. Onset: The be symptom(s)/episode began/occurred acutely, just prior to arrival, at [place], treated with [facility]AP and transferred. [place] [facility] [place], and ongoing left foot ulcer, discharged with levofloxacin. Modifying factors: The patient has had contact with sick at the hospital. Associated signs and symptoms: Pertinent positives: chills, left foot ulcer, Pertinent negatives: abdominal pain, altered mental status, cough, diarrhea, nausea, skin rash, vomiting, urinary symptoms. The patient has been recently seen by a physician: Dr. Heredia, hospitalized for fall risk. Historical: - Allergies: Codeine; Morphine; Amiodarone; - Home Meds: 1. Omeprazole Oral 2. enalapril maleate Oral 3. Warfarin Oral 4. Furosemide Oral 5. levothyroxine oral 6. Vitamin D2 oral 7. Ferrous Sulfate Oral 8. Metoprolol Tartrate Oral 9. Levofloxacin Oral 10. Potassium Chloride Oral - PMHx: Hypertension; CAD; ATRIAL FIB; gastritis; CHF; COPD; - PSHx: Unable to obtain; - Tetanus: < 10 years. - Ebola Screening: : Patient denies exposure to infectious person. Patient denies travel to an Ebola-affected area in the 21 days before illness onset. . - Immunization history: Flu Vaccine < 1 year. - Social history: Smoking status: Patient states former smoker of tobacco. Patient/guardian denies using alcohol. - Code Status:: Full code. ROS: 20:31 Constitutional: Positive for fever, malaise, hypotension. be 20:31 All other systems are negative. Exam: 20:32 Constitutional: The patient appears alert, awake, comfortable, non-diaphoretic, be non-toxic, well developed, well hydrated, well groomed, well nourished. 20:32 Head/face: Exam is negative for acute changes. 20:32 Eyes: Exam is negative for acute changes. 20:32 Neck: ROM/movement: no acute changes, Meningeal signs: are not present. 20:32 Respiratory: the patient does not display signs of respiratory distress. 20:32 Musculoskeletal/extremity: ROM: no acute changes, Joints: All joints appear normal with full range of motion. 20:32 Skin: lesion(s), located on the arch of left foot, left lateral foot ulcer. 20:32 Neuro: Orientation: appropriate for stated age, to person, place & time. Gait: unable to assess, too weak and light-headed. Vital Signs: 19:24 BP 113 / 52; Pulse 72; Resp 18; Temp 98.2; Pulse Ox 90% on R/A; mv 20:23 BP 88 / 54; Pulse 70; Resp 22; Pulse Ox 99% on 2 lpm NC; lb 20:41 BP 110 / 43; Pulse 80; Resp 18; Pulse Ox 98% on 2 lpm NC; Pain 0/10; lb 21:26 BP 119 / 40; Pulse 94; Resp 16; Pulse Ox 98% on 2 lpm NC; Pain 0/10; lb 21:33 Pulse 76; Resp 18; Temp 97.7; Pulse Ox 96% on 2 lpm NC; Pain 0/10; lc MDM: 19:26 Patient medically screened. be 20:34 Differential diagnosis: bacterial infection, pneumonia UTI, osteomyelitis. Data be reviewed: vital signs, nurses notes, old medical records, lab test result(s), EKG, radiologic studies, and as a result, I will *Transfer Patient administer antibiotics vancomycin, Zosyn, administer IV fluids, NS bolus, 2 liters. 20:58 ECG:. be 21:30 EKG attached lb 10/19 20:07 Order name: CBC AUTO DIF, MDIF/RMOR IF IND; Complete Time: 22:36 EDMS 10/19 20:26 Interpretation: Abnormal: Anemia, Leukocytosis with left shift and polycythemia. 10/19 20:21 Order name: COMPREHENSIVE METABOLIC PANEL; Complete Time: 22:36 [facility] [place] 10/19 20:27 Interpretation: Normal Except: hyponatremia. 10/19 20:21 Order name: C-REACTIVE PROTEIN; Complete Time: 22:36 [facility] [place] 10/19 20:27 Interpretation: Abnormal: elevated. 10/19 20:22 Order name: LACTATE; Complete Time: 20:27 [facility] [place] 10/19 20:27 Interpretation: Normal. 10/19 21:11 Order name: PROTIME/INR; Complete Time: 22:36 [facility] [place] 10/19 22:35 Interpretation: Normal. 10/19 21:11 Order name: PARTIAL THROMBOPLASTIN TIME; Complete Time: 22:36 [facility] [place] 10/19 22:35 Interpretation: Normal. 10/20 19:54 Order name: BLOOD CULTURE [facility] [place] 10/20 20:31 Order name: BLOOD CULTURE [facility] [place] 10/20 17:21 Order name: CXR 2V [id number] [facility] [place] 10/21 14:52 Order name: FOOT;[address] [place] [id number] [facility] [place] 10/19 19:30 Order name: Cardiac Monitoring - Continuous; Complete Time: 19:40 10/19 19:30 Order name: Oxygen; Complete Time: 19:40 10/19 19:30 Order name: Oxygen Sats; Complete Time: 19:40 10/19 19:30 Order name: EKG - 12 Lead; Complete Time: 20:41 10/19 19:55 Order name: Oxygen; Complete Time: 20:04 EC:58 Rate is 74 beats/min. Rhythm is irregular, A fib with No ectopy. QRS [place] is Normal. [place] be interval is normal. QRS interval is normal. QT interval is normal. No Q waves. T waves are Normal. No ST changes noted. Clinical impression: Atrial Fibrillation. Interpreted by me. Dispensed Medications: 19:47 Drug: NS 0.9% 2000 ml; Route: IV; Rate: bolus; Site: left antecubital; lb 21:30 Follow up: IV Status: Infusing continued upon transfer; IV Intake: 1500ml 20:25 Drug: Zosyn - Piperacillin-Tazobactam 4.5 grams; {Note: STARTED IMMEDIATELY AFTER 2ND lc BLOOD CULTURE DONE.} Route: IVPB; Infused Over: 30 mins; Site: left antecubital; Delivery: Pump; 21:13 Follow up: IV Status: Completed infusion; IV Intake: 100ml lc 21:07 Drug: vancomycin 1 grams; Route: IVPB; Infused Over: 2 hrs; Site: left antecubital; lc Delivery: Pump; 21:31 Follow up: IV Status: Infusing continued upon transfer; IV Intake: 60ml lc Signatures: Elizabeth Dowell RN RN lc Elliott, Brian, MD MD be Bollock, Lynda lb
[2016-10-19 21:57] LABS: C-REACTIVE PROTEIN 251.5 mg/L (<10.0)
--- NOTE | 2016-10-20 08:44 | RADIOLOGY REPORT ---
Two views of the chest are compared with 10/17/2016. Heart, vessels and pacer are stable. No infiltrate is seen. Right upper lobe mass identified on CT scanning is not demonstrated on this exam. IMPRESSION: No cardiopulmonary abnormality is identified. MTDD
--- NOTE | 2016-10-21 14:27 | RADIOLOGY REPORT ---
Two views of the left foot demonstrate no displaced fracture or dislocation. Ill-defined relative lucency involving the distal portion of the fourth and fifth metatarsal, raises the possibility of osteomyelitis. The joints appear grossly unremarkable. IMPRESSION: Given the clinical presentation there are findings raising concern for osteomyelitis involving the distal portion of the left fourth and fifth metatarsals. MTDD
== END 2016-10-19 21:47 | disposition short-term general hospital (02) ==
LOC: ER 19:19
DX: M86.172 Other acute osteomyelitis, left ankle and foot (principal); L89.892 Pressure ulcer of other site, stage 2; R50.9 Fever, unspecified; I95.9 Hypotension, unspecified; R53.1 Weakness; R42 Dizziness and giddiness; E87.1 Hypo-osmolality and hyponatremia; I48.91 Unspecified atrial fibrillation; D64.9 Anemia, unspecified; D72.829 Elevated white blood cell count, unspecified; D75.1 Secondary polycythemia; I10 Essential (primary) hypertension; I25.10 Atherosclerotic heart disease of native coronary artery without angina pectoris; Z79.01 Long term (current) use of anticoagulants; Z79.899 Other long term (current) drug therapy; Z99.89 Dependence on other enabling machines and devices; Z74.3 Need for continuous supervision
CPT/HCPCS: 71020; 80053; 83605; 85025; 85610; 85730; 86140; 87040; 87077; 87186; 93005; 96361; 96365; 96367; 96368; 99285; A0425; A0427; J2543; J3370; J7050